=== PATIENT | male | born 1970 | race Caucasian/White ===

== ENCOUNTER 2023-07-29 11:22 | Observation (INO) ==
--- NOTE | 2023-07-19 09:16 | Anesthesiology Consultation ---
Date of Service July 19, 2023 Assessment & Plan (1) Encounter for pre-operative examination: - will request most recent cardiology office note from [facility] Dr. Sánchez. 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 Chart Review Chart Review: Pending: Refer to Additional Notes / Consult section and Patient NOT seen in Pre Admission Testing History Surgery Operation Date: 07/29/23 13:20 Proposed Procedures p Right Revision Partial versus Complete Total Hip Arthroplasty - Iraj Taylor DO Height/Weight Height: 6 ft 2 in Weight: 120.202 kg Allergies Allergy/AdvReac Type Severity Reaction Status Date / Time No Known Allergies Allergy Verified 07/15/23 13:45 Medications Home Medications Medication Instructions Recorded Confirmed Last Taken atorvastatin 10 mg tablet 10 mg PO QAM #90 tabs 12/09/22 07/15/23 05/22/23 olmesartan 20 mg tablet 20 mg PO QAM 12/10/22 07/15/23 05/22/23 methocarbamol 750 mg tablet 1,500 mg (2 x 750 mg) PO TID #180 04/04/23 07/15/23 05/22/23 tabs gabapentin 300 mg capsule 300 mg PO QID #60 caps 04/08/23 07/15/23 05/22/23 syringe with needle 3 mL 25 x 5/8" #50 ea 05/31/23 Unknown (BD Eclipse Luer-Ishmael) celecoxib 200 mg capsule 200 mg PO BID #60 caps 07/04/23 07/15/23 Unknown testosterone cypionate 200 mg/mL 100 mg (0.5 mL) IM Q7D #6 mL 07/04/23 07/15/23 Unknown intramuscular oil Past Medical History Medical History Family history of high cholesterol Rx statin, follows with PCP History of COVID-29 Mar 2020 History of panic attacks Hypertension Long-term current use of testosterone cypionate Muscle spasm of right leg Active Obstructive sleep apnea CPAP-nightly Osteoarthritis Paresthesia of right lower extremity Polycythemia, secondary followed by Hematology at [facility]-phlebotomy q 3 wks Past Family History Family History Father , At age 64 Myocardial infarction Family history of diabetes mellitus Brother , At age 39 Myocardial infarction Unknown Colon cancer Mother Family hx of colon cancer Grandmother (Maternal) Family hx of colon cancer Other No family history of adverse response to anesthesia Past Surgical History Surgical History History of colonoscopy 2020 History of hip surgery rt hip endoscopic ileotibial band release History of total right hip replacement anterior Hx of vasectomy [place] teeth removed Social History Smoking Status: Never smoker Do You Dip or Chew Tobacco: No Hx Alcohol Use: No Alcohol type: beer alcohol intake frequency: holidays/special occasions only Hx Substance Use: No substance use type: does not use Last Used Substance Other:: received medical marijuana rx for aftery surgery-has not used Lab Results Anesthesia Preop Results Results Anesthesia Widget: WBC 6.33 K/ul (4.8-10.8) 07/14/23 Hgb 14.6 g/dl (14.0-18.0) 07/14/23 Hct 45.8 % (42.0-52.0) 07/14/23 Plt 239 K/uL (130-400) 07/14/23 Na 139 mmol/L (136-145) 07/14/23 K 3.8 mmol/L (3.5-5.1) 07/14/23 Cl 105 mmol/L (98-107) 07/14/23 CO2 27 mmol/L (21-32) 07/14/23 BUN 26 mg/dl (6-23) H 07/14/23 Creat 1.13 mg/dl (0.6-1.4) 07/14/23 Glucose Level 120 mg/dl (70-99(Fasting)) H 07/14/23 PT 10.8 Seconds (9.0-12.0) 07/14/23 PTT 36 Seconds (21-31) H 07/14/23 INR 1.0 (0.9-1.1) 07/14/23 Blood Type O Positive 07/14/23 Antibody Screen NEGATIVE 07/14/23 Testing Electrocardiogram Date: 05/03/23 NSR, rate 78 bpm Chest X-Ray Date: 07/14/23 No active disease in the chest. Stress Test Date: 05/20/23 METS 10 MPHR 90% Negative exercise stress echo and ECG EF 50% Mildly dilated LV with mild global hypokinesis
[~2023-07-29 11:22] MED LIST: ROPIVACAINE 0.5% 5 MG/ML 30 ML VIAL ONE
[2023-07-29] MEDS ORDERED: PROPOFOL IV EMULSION 10 MG/ML 20 ML VIAL IV ONE (11:40)
[2023-07-29] MEDS ORDERED: MIDAZOLAM HCL 1 MG/ML 2ML VIAL ONE ×2 (11:40→13:26)
[2023-07-29] MEDS ORDERED: LIDOCAINE 2% 2 ML VIAL/AMP(20MG/ML) INFIL ONE (11:41)
[2023-07-29] MEDS ORDERED: fentaNYL citrate PF 100 MCG/2 ML VIAL ONE (11:41)
[2023-07-29] MEDS: dexAMETHasone**PF** 10 MG/ML VIAL IV SCH (12:00)
[2023-07-29] MEDS: ACETAMINOPHEN 500 MG TAB PO SCH ×2 (12:00→21:21)
[2023-07-29] MEDS: FAMOTIDINE 20 MG TAB PO SCH (12:00)
[2023-07-29] MEDS: GABAPENTIN 300 MG CAP PO SCH ×2 (12:00→19:58)
[2023-07-29] MEDS: LR 60ML/HR IV SCH (12:01)
--- NOTE | 2023-07-29 12:12 | History & Physical Bridge Note ---
Date of Service July 29, 2023 History & Physical Bridge Note I have examined the patient, reviewed the History & Physical and in the interval since the performance of the History & Physical I have noted the following changes of clinical significance: no changes noted
[2023-07-29] MEDS: LR 500ML BOLUS, THEN 15ML/HR IV SCH (12:25)
[2023-07-29] MEDS ORDERED: ePHEDrine sulfate 50 MG/ML AMP IV PRN (12:50)
[2023-07-29] MEDS ORDERED: fentaNYL citrate PF 100 MCG/2 ML VIAL IV PRN (12:50)
[2023-07-29] MEDS ORDERED: ONDANSETRON INJ 2 MG/ML 2 ML VIAL IV PRN ×2 (12:50→18:53)
[2023-07-29] MEDS ORDERED: ATROPINE SULFATE 0.1 MG/ML 10ML SYR IV PRN (12:50)
[2023-07-29] MEDS ORDERED: HYDROmorphone INJ 1 MG/ML SYRINGE IV PRN (12:50)
[2023-07-29] MEDS ORDERED: BUPIVACAINE 0.5 % 5 MG/1 ML PF 10ML VIAL ONE (12:56)
[2023-07-29] MEDS: TRANEXAMIC ACID 1,000 MG **IV Pre-op IV SCH (12:59)
[2023-07-29] MEDS: ceFAZolin 3000MG 3,000 MG/72.5 ML BAG IV SCH (13:23)
[2023-07-29] MEDS: ORTHO JOINT ANESTHETIC ONE (14:08)
[2023-07-29] MEDS ORDERED: HYDROmorphone INJ 2 MG/ML SYR/VIAL ONE (14:26)
[2023-07-29] MEDS ORDERED: ONDANSETRON INJ 2 MG/ML 2 ML VIAL ONE (15:03)
[2023-07-29] MEDS ORDERED: DEXAMETHASONE SOD INJ 4 MG/ML VIAL ONE (15:03)
[2023-07-29] MEDS ORDERED: PHENYLEPHRINE HCL 10 MG/ML VIAL ONE (15:18)
[2023-07-29] MEDS ORDERED: ePHEDrine sulfate 50 MG/5 ML SYR ONE (16:43)
[2023-07-29] MEDS ORDERED: GLYCOPYRROLATE 0.2 MG/ML VIAL ONE (16:52)
[2023-07-29 16:54] LABS: iSTAT Hemoglobin 14.6 g/dl (14.0-18.0); iSTAT Ionized Calcium 1.29 mmol/l (1.12-1.32); iSTAT Potassium 4.6 mmol/L (3.3-5.0)
[2023-07-29] MEDS: TRANEXAMIC ACID 1,000 MG **IV Intra-op IV SCH (17:00)
[2023-07-29] MEDS: ROPIV 0.5% 246mg, Ketorolac 30mg, EPINEPHrine 0.5mg in NSS INFIL SCH (17:15)
--- NOTE | 2023-07-29 17:21 | Operative Report ---
PG Post Operative Report Pre & Post Diagnosis Operation Date: 07/29/23 13:00 Pre-Op Diagnosis: Femoral loosening of prostethic right hip Post-Op Diagnosis: Femoral loosening of prostethic right hip I identified the patient and participated in the time-out.: Yes Procedure Operation Date: 07/29/23 13:00 Actual Procedures p Right revision total hip arthroplasty with revision of femoral component and femoral head. (Right) - Iraj Taylor DO Surgeon Iraj Taylor DO Coordinator Cardiopulmonary Services Iraj Zaldivar PA-C Estimated Blood Loss 400 Findings Consistent with Post-Op Diagnosis Specimens None Description of Procedure Implants used: I used a [employer] size 14 x 210 Lacy 1 piece with a 40 mm dual mobility bearing and a 28 mm head with a +6 neck. On July Saturnino arrived at [facility] for the above procedure. He was seen in the preoperative holding area and the operative extremity identified and signed. He is given a preoperative antibiotic and a spinal anesthetic. He was taken back to the operating room and laid on table supine position. He was initially put under basic sedation but he was having some trouble being comfortable on the table so he was put under general anesthesia. The right leg was brought out to a pure wrist leg positioner. The right hip was then prepped and draped in sterile fashion. A timeout was done. The patient and the operative extremity was properly identified. The previous anterior approach was opened up. Dissection was taken down through the fascia. The rectus was retracted anteriorly and the tensor muscle belly was retracted laterally. The capsule was identified. The capsule was then incised and tagged for later repair. The femoral head was then visualized. There was some synovial fluid within the joint but no signs of infection. Significant time was spent removing some scar tissue around the dual mobility shell and the hip was dislocated. Once the hip was dislocated the femoral head was then removed. The femur was then inspected. The femoral stem did have micromotion and was considered loose. The femoral stem was easily removed. At this point I decided to do an Lacy 1 piece stem. This would give me better femoral fixation. Due to the bony pedestal underneath the previously loose stem I used a drill bit from the [employer] hip fracture set followed by a cannulated reamer. I then used a ball-tipped guidewire to go down the canal followed by [employer] reamers. Once I was passed the pedestal and the canal was sufficiently opened up, I used the Lacy 1 piece reamers up to a size 14 reamer. A size 14 broach was then impacted into place. A 44 mm dual mobility shell was then snapped onto a 28 mm head with a +6 neck. This was placed onto the femoral stem. The hip was then reduced. Fluoroscopic images showed anatomic alignment of the hardware and the hip. The hip was then dislocated. All trial components were then removed. The final size 14 x 210 Lacy 1 piece stem was then impacted in the place. I was able to get an excellent press-fit. The 44 mm dual mobility shell was then snapped onto a 28 mm head with a +6 neck. The head was then placed onto the femoral neck. The hip was then reduced. Fluoroscopic images showed anatomic alignment of the hip. The wound was then irrigated. The capsule was closed with #1 Vicryl. The fascial layer was closed with #0 PDS suture. A deep skin layer was closed with 2-0 Vicryl. Superficial skin was closed with 3-0 Vicryl and david. He was then placed in a Silverlon dressing. He was then extubated and transferred to a hospital bed. He was taken to the postanesthesia care unit in stable condition. He tolerated the procedure well. Iraj Zaldivar PA-C, was present for the entire procedure. He was critical for patient positioning, prepping, draping, retraction exposure, wound closure and application of sterile dressing. I attest to the content of the Intraoperative Record and any orders documented therein. Any exceptions are noted below.
--- NOTE | 2023-07-29 17:41 | Fluoroscopy Report ---
FL hip RT 1V CLINICAL HISTORY: RIGHT TOTAL HIP ARTHROPLASTYright hip arthroplasty COMPARISON STUDY: 07/05/2023 FLUOROSCOPY TIME: 25.9 seconds FLUOROSCOPY IMAGES: 3 EXPOSURE DOSE: 3.0556 mGy FINDINGS: Satisfactory alignment of the right hip arthroplasty. No acute fracture or unexpected opaqu e foreign bodies identified. IMPRESSION: Fluoroscopic assistance as above. ACT 112: Negative or not required by law. Electronically signed by: Tree Collins M.D. 07/29/2023 5:39 PM
--- NOTE | 2023-07-29 18:15 | XRay Report ---
XR hip 1V RT w pelvis HISTORY: 52 years-old Male IN PACU - Post Surgical right hip arthroplasty COMPARISON: 07/05/2023 TECHNIQUE: AP view the pelvis with 2 views of the right hip FINDINGS: Satisfactory alignment of the right hip arthroplasty. Lateral skin david with expected postoperativ e soft tissue swelling and deep tissue air. No acute fracture or unexpected opaque foreign body. IMPRESSION: Satisfactory alignment of the right total joint arthroplasty. ACT 112: Negative or not required by law. The above report was generated using voice recognition software. It may contain grammatical, syntax o r spelling errors. Electronically signed by: Tree Collins M.D. 07/29/2023 6:13 PM
--- NOTE | 2023-07-29 18:28 | Anesthesiology Progress Note ---
Date of Service July 29, 2023 Anesthesia Post Procedure Vital Signs Vital Signs: Temp Pulse Pulse Resp BP Pulse Ox O2 Del Method 07/29/23 18:20 80 12 120/62 98 Oxymask 07/29/23 18:10 79 12 126/69 99 Oxymask 07/29/23 18:00 89 18 108/61 99 Oxymask 07/29/23 17:50 88 18 115/63 100 Oxymask 07/29/23 17:40 98.2 F 85 16 127/65 100 Oxymask 07/29/23 11:53 98.1 F 66 20 125/71 99 Room Air O2 Flow Rate 07/29/23 18:20 4 07/29/23 18:10 4 07/29/23 18:00 4 07/29/23 17:50 4 07/29/23 17:40 6 07/29/23 11:53 Pain Intensity Right Hip: Pain Intensity: 2 Transfer of Care Handoff Completed per policy Notes Mental Status: alert / awake / arousable and participated in evaluation Patient Amnestic to Procedure: Yes Nausea / Vomiting: adequately controlled Pain: adequately controlled Airway Patency, RR, SpO2: stable & adequate BP & HR: stable & adequate Hydration State: stable & adequate Neuraxial Anesthesia: was administered and sensory block is resolving Anesthetic Complications: no major complications apparent and Pt Satisfied with anesthetic care
[2023-07-29] MEDS ORDERED: oxyCODONE HCL IR 5 MG TAB (IMMEDIATE RELEASE) PO PRN (18:53)
[2023-07-29] MEDS ORDERED: NALOXONE HCL 0.4 MG/1 ML VIAL/CARP IV PRN (18:53)
[2023-07-29] MEDS ORDERED: HYDROmorphone INJ 0.5 MG/0.5 ML SYR IV PRN (18:53)
[2023-07-29] MEDS ORDERED: traMADol HCL 50 MG TABLET PO PRN (18:53)
[2023-07-29] MEDS ORDERED: METOCLOPRAMIDE HCL INJ 5 MG/ML 2 ML VIAL IV PRN (18:53)
[2023-07-29] MEDS ORDERED: MAGNESIUM HYDROXIDE SUSP 30 ML UDC PO PRN (18:53)
[2023-07-29] MEDS ORDERED: bisacodyL 10 MG SUPP PR PRN (18:53)
[2023-07-29] MEDS: SODIUM CHLORIDE 0.9% 1,000 ML IV SCH (19:37)
[2023-07-29] MEDS: KETOROLAC TROMETHAMINE 15 MG/ML VIAL IV SCH (19:58)
[2023-07-29] MEDS: ceFAZolin 1000MG 1,000 MG/7.5 ML SYR IV SCH (19:58)
[2023-07-29] MEDS: DOCUSATE SODIUM 100 MG CAP PO SCH (21:20)
[2023-07-29] MEDS: ASPIRIN 81 MG ECTAB PO SCH (21:20)
[2023-07-29] MEDS: METHOCARBAMOL 750 MG TABLET PO SCH (21:20)
[2023-07-29] MEDS: SENNA 8.6 MG TAB PO SCH (21:21)
[2023-07-30] MEDS: ATORVASTATIN 10 MG TAB PO SCH (08:05)
[2023-07-30] MEDS: MULTIVITAMIN TAB PO SCH (08:05)
[2023-07-30] MEDS: dexAMETHasone 4 MG TAB PO SCH (08:09)
--- NOTE | 2023-07-30 08:33 | Orthopedic Progress Note ---
Date of Service July 30, 2023 Assessment & Plan (1) Status post revision of total hip replacement: Overall is doing very well. He is not having much pain in the right leg at this time. He will be seen by physical therapy today for ambulation and range of motion exercises. He is on aspirin for DVT prophylaxis. He can be discharged home later today. He will follow-up orthopedics in 2 weeks. Manuel Matamoros was seen and examined at bedside this morning. Overall is doing very well. Is not having much pain in the hip. He has not been up and ambulating yet. He has no complaints.. Review of Systems All systems reviewed & are unremarkable except as noted in HPI & below. Physical Exam Physical examination the right hip, his leg is out full extension he has active dorsiflexion plantarflexion of his right ankle. He is right dressing has some leakage and it has been reinforced with an ABD.. Results & Data Results & Data Laboratory Results . Diagnostic Findings Postop x-rays of the right femur show the prosthesis to be in anatomic alignment without any evidence of fracture complication, or loosening.. PG Care Time/CCT Total # of Minutes Spent Total Time Spent with Patient: Total time spent is greater than 50% in coordination of care (as documented) at patient's floor/unit and/or counseling patient: Coding Level of Care Code 88674 Post Operative Follow-Up Diagnoses Status post revision of total hip replacement Z96.649
--- NOTE | 2023-07-30 08:34 | Discharge Summary ---
Date of Service July 30, 2023 Principal Diagnosis Same as "Discharge Diagnosis" noted below under Discharge Instructions. Discharge Exam Physical examination the right hip, his leg is out full extension he has active dorsiflexion plantarflexion of his right ankle. He is right dressing has some leakage and it has been reinforced with an ABD.. Discharge Data Procedures Performed Operation Date: 07/29/23 13:00 Actual Procedures p Right Partial Revision of Total Hip Arthroplasty(Right) - Iraj Taylor DO Ordered Studies 07/29/23 07:00 FL hip RT 1V Routine Hospital Course (1) Status post revision of total hip replacement: On July Saturnino arrived to [facility] and underwent a revision right hip replacement without complication. He had a spinal anesthetic that was converted to general. Postoperatively he was started on aspirin for DVT prophylaxis and transferred to the general orthopedic floors. His hospital course was uneventful. On postop day #1, his vital signs were stable and his pain was well-controlled. He was able to participate well with physical therapy doing ambulation and range of motion exercises. He was then discharged home. He will follow-up orthopedics in 2 weeks. PG Care Time/CCT Total # of Minutes Spent Total Time Spent with Patient: Total time spent is greater than 50% in coordination of care (as documented) at patient's floor/unit and/or counseling patient: Discharge Plan Discharge Items Patient Disposition: Home - Self-Care Reason For Visit: POST SURGICAL CARE Discharge Diagnosis: Right hip replacement Activity: As commented below Non-emergency contact: Surgeon Call non-emergency contact if: your wound has increased redness and your wound has increased drainage Follow-up/Referrals: PCP,NO [Primary Care Provider] - Diet: Regular Addtl Attending Provider Instructions: Activity and Therapy Recommendations: * If you are using [facility] then therapy will be provided at your home until they feel you have accomplished all of your goals. * If you are using [facility] then Physical Therapy will be provided until they feel you are ready to start Outpatient Physical Therapy. * If you are not using home therapy then Outpatient Physical Therapy should start about 3-5 days from your day of surgery. Therapy will last about 6-10 weeks * You were shown a series of exercises in the hospital. Do these exercises three times each day including the exercises you were shown in physical therapy. * Get up and walk several times each day.~ For the first four weeks, try not to stand or walk for more than one hour at a time. If you do stand or walk for more than one hour, you will not hurt anything, but your leg will likely swell.~~ * As you feel comfortable, you may change from the walker or crutches to a cane and~then to independent walking. Medications: * Narcotic You will likely be sent home from the hospital with a prescription for the narcotic pain medication that worked best throughout your stay. * Aspirin Most patients will be required to take Aspirin 81mg twice a day for 6 weeks after surgery. This is obtained [id number] and a prescription is not necessary. * Cefadroxil -take the antibiotic twice a day for 21 days to help prevent infection. * Other medications may be prescribed for specific circumstances. If you have any questions, please call the office at . * Resume previous home medications unless otherwise instructed TEDs/Elastic Stockings: The white elastic stockings help limit swelling and prevent blood clots from forming in your legs. The more you wear them, the more they work. Wear them for six weeks. Dressing Care: Leave the Silverlon dressing in place for 7 days. After 7 days you may remove the dressing. If the incision is not draining then you may leave the david open to air. If there is a little bit of drainage or if the david are getting stuck on your clothing then cover the incision with a dry dressing. The david will be removed at your 2 week follow-up appointment. Showering: You may shower with the Silverlon dressing in place. Do not let the shower spray hit the dressing directly. Pat the Silverlon dressing dry. If the dressing becomes wet underneath, then simply remove the dressing. Keep the incision dry until you are 7 days out from the day of surgery. After 7 days you may remove the Silverlon dressing and shower with the david exposed. Let soapy water run over the david and pat them dry. Do not scrub or soak the incision. Things To Watch For: * Drainage from the incision site that occurs more than one week after your surgery. * Increased redness at the incision site. * Fever above 102 degrees Fahrenheit. * Unusual chest pain or shortness of breath. * Call [facility] at with any of the above problems Follow-Up Visit: Follow-up with Dr. Taylor's PA (Iraj Zaldivar) 2-3 weeks after your day of surgery. He will remove your david and answer any questions. If you have any additional questions or concerns, Dr Taylor is usually in the office at the same time and will be available An appointment was probably scheduled when you signed-up for surgery in the office. If you have any questions call Office Instructions: More detailed instructions as well as Frequently Asked Questions were provided in a folder by our office when you signed-up for surgery. Please review these instructions when you get home. If you have any further questions or concerns, please feel free to call the office at [phone] Pending Studies at Discharge: No Stand-Alone Forms: My [facility] Medications and DC Order Prescriptions: New oxycodone 5 mg Tablet 5 mg PO Q4H PRN (Reason: pain) Qty: 30 0RF cefadroxil 500 mg capsule 500 mg PO BID 21 Days Qty: 42 0RF aspirin 81 mg Tablet,Delayed Release (Dr/Ec) 81 mg PO BID 42 Days Qty: 84 0RF Continued olmesartan 20 mg tablet 20 mg PO QAM atorvastatin 10 mg tablet 10 mg PO QAM Qty: 90 2RF methocarbamol 750 mg tablet 1,500 mg PO TID Qty: 180 2RF gabapentin 300 mg capsule 300 mg PO QID Qty: 60 2RF (DME) BD Eclipse Luer-Ishmael 3 mL 25 x 5/8" syringe See Rx Instructions .ROUTE .MEDSUPPLY Qty: 50 0RF Rx Instructions: use to inject testosterone celecoxib 200 mg capsule 200 mg PO BID Qty: 60 2RF testosterone cypionate 200 mg/mL oil 100 mg IM Q7D Qty: 6 1RF Rx Instructions: 12/08/22 PDMP Queried ok to fill -TR Discharge Orders: Discharge Order (Routine); Ordered 07/30/23 Ordered By: Iraj Taylor Admission Data Admit Date/Time: 07/29/23 14:13 Attending Provider: Iraj Taylor Admit Provider: Iraj Taylor Primary Care Provider: PCPMARIA TERESA
[2023-07-30] MEDS ORDERED: LOSARTAN POTASSIUM 50 MG TAB PO SCH (09:00)
[2023-07-30] MEDS ORDERED: OLMESARTAN MEDOXOMIL 20 MG TAB PO SCH (09:00)
== END 2023-07-30 12:50 | disposition home or self-care (01) ==
LOC: ASU 11:22 → 3E 11:22

== ENCOUNTER 2024-04-23 07:21 | Observation (INO) ==
--- NOTE | 2024-03-02 11:29 | PAT Medication Instructions ---
Medication Instructions Date of Service March 02, 2024 Home Medications Medication Instructions Recorded methocarbamol 750 mg tablet 1,500 mg (2 x 750 mg) PO TID #180 04/04/23 tabs gabapentin 300 mg capsule 300 mg PO QID #60 caps 04/08/23 syringe with needle 3 mL 25 x 5/8" #50 ea 10/10/23 (BD Eclipse Luer-Ishmael) testosterone cypionate 200 mg/mL 100 mg (0.5 mL) IM Q7D #6 mL 11/14/23 intramuscular oil atorvastatin 10 mg tablet 10 mg PO QAM #90 tabs 11/21/23 celecoxib 200 mg capsule 200 mg PO BID #60 caps 11/21/23 tramadol 50 mg tablet 50 mg PO Q8H PRN pain #30 tabs 01/30/24 olmesartan 20 mg tablet 20 mg PO QAM methocarbamol 750 mg tablet 1,500 mg (2 x 750 mg) PO TID gabapentin 300 mg capsule 300 mg PO QID testosterone cypionate 200 mg/mL intramuscular oil 100 mg (0.5 mL) IM Q7D atorvastatin 10 mg tablet 10 mg PO QAM celecoxib 200 mg capsule 200 mg PO BID tramadol 50 mg tablet 50 mg PO Q8H PRN ASK your surgeon for instructions celecoxib 200 mg capsule 200 mg PO BID ASK your prescriber and surgeon testosterone cypionate 200 mg/mL intramuscular oil 100 mg (0.5 mL) IM Q7D DO NOT take the morning of surgery olmesartan 20 mg tablet 20 mg PO QAM Take morning of surgery With a small sip of water, OTHERWISE NOTHING TO EAT OR DRINK AFTER MIDNIGHT: methocarbamol 750 mg tablet 1,500 mg (2 x 750 mg) PO TID gabapentin 300 mg capsule 300 mg PO QID atorvastatin 10 mg tablet 10 mg PO QAM tramadol 50 mg tablet 50 mg PO Q8H PRN(if needed) Take evening before surgery methocarbamol 750 mg tablet 1,500 mg (2 x 750 mg) PO TID gabapentin 300 mg capsule 300 mg PO QID tramadol 50 mg tablet 50 mg PO Q8H PRN(if needed) Other Notes If you have any questions please call us at [phone] or [phone] or [phone] or [phone]
--- NOTE | 2024-03-13 13:09 | Anesthesiology Consultation ---
Date of Service March 13, 2024 Assessment & Plan (1) Encounter for pre-operative examination: - will request most recent [facility] office note. - cardiology office visit 05/03/23: "...family history of ischemic heart disease and other diseases of the circulatory system-SOB, high BP, SOB, lightheaded and dizziness-CPAP every night...cardiac workup about a decade ago after his brother unfortunately at the age of 39 of a heart attack after having had stents at the age of 33. At that time he had stress testing which was negative...paternal uncle undergo CABG and his son (patient's cousin) suddenly while the uncle was still in the hospital...anxiety and will at times have shortness of breath and dizziness during panic attacks...polycythemia but was negative for JAK2...requires phlebotomy 6 or 7 times per year...not having any concerning anginal symptoms...exercises regularly...EKG performed in the office today which showed NSR...blood pressure is little elevated today...to start checking his BP at home. if he is able to come off the NSAIDs it would be reasonable for him to take an 81 mg baby aspirin every day given his family's history...return to the clinic in a year..." Chart Review Chart Review: Pending: Refer to Additional Notes / Consult section and Patient seen in Pre Admission Testing Teaching & Discussion Pre-Anesthesia Teaching/Discussion Notes: Instructed NPO after midnight before surgery, except medications with 15 cc of water. Medication instructions provided according to the PAT guidelines. History Surgery Operation Date: 04/06/24 12:00 Proposed Procedures p Left Anterior Total Hip Arthroplasty - Iraj Taylor DO Height/Weight Height: 6 ft 2 in Weight: 123.3 kg Allergies Allergy/AdvReac Type Severity Reaction Status Date / Time No Known Allergies Allergy Verified 03/02/24 08:30 Medications Home Medications Medication Instructions Recorded Confirmed Last Taken olmesartan 20 mg tablet 20 mg PO QAM 12/10/22 03/02/24 05/22/23 methocarbamol 750 mg tablet 1,500 mg (2 x 750 mg) PO TID #180 04/04/23 03/02/24 05/22/23 tabs gabapentin 300 mg capsule 300 mg PO QID #60 caps 04/08/23 03/02/24 05/22/23 testosterone cypionate 200 mg/mL 100 mg (0.5 mL) IM Q7D #6 mL 11/14/23 03/02/24 Unknown intramuscular oil atorvastatin 10 mg tablet 10 mg PO QAM #90 tabs 11/21/23 03/02/24 Unknown celecoxib 200 mg capsule 200 mg PO BID #60 caps 11/21/23 03/02/24 Unknown tramadol 50 mg tablet 50 mg PO Q8H PRN pain #30 tabs 01/30/24 03/02/24 Unknown syringe with needle 3 mL 25 x 5/8" #50 ea 03/12/24 Unknown (BD Eclipse Luer-Ishmael) tramadol 50 mg tablet 50 mg PO Q8H PRN pain #30 tabs 03/12/24 Unknown Past Medical History Medical History (Updated 03/13/24 @ 13:35 by Shelly Callejas PA-C) History of panic attacks Hyperlipidemia Hypertension controlled, stable per pt Osteoarthritis Polycythemia, secondary monitored by hematology, last therapeutic phlebotomy last year Sleep apnea CPAP-compliant Patient denies h/o stroke, seizures, heart attack, heart failure, DM, blood clots/DVTs or blood transfusions. Exercise / Class Metabolic Activity II 4-5 Yardwork/Stairs/Walk up hill (denies chest discomfort or shortness of breath with one flight of stairs) Past Family History Family History Father , At age 64 Myocardial infarction Family history of diabetes mellitus Diabetes Heart disease Brother , At age 39 Myocardial infarction Unknown Colon cancer Mother Family hx of colon cancer Colorectal cancer Grandmother (Maternal) Family hx of colon cancer Other No family history of adverse response to anesthesia Past Surgical History Surgical History History of colonoscopy 2020 History of hip surgery rt hip endoscopic ileotibial band release + revision (07/2023 at [place]) History of total right hip replacement anterior Hx of vasectomy [place] teeth removed Past Anesthesia History No Hx of Anesthesia Complications and No Family Hx of Anesthesia Complications History of PONV No Hx of PONV and No Hx of Motion Sickness Social History Smoking Status: Never smoker Do You Dip or Chew Tobacco: No Hx Alcohol Use: No Alcohol type: beer alcohol intake frequency: holidays/special occasions only Hx Substance Use: No substance use type: does not use Last Used Substance Other:: no longer using medical marijuana due to side effects Review of Systems Patient denies chest pain, shortness of breath, dyspnea on exertion, reflux, fever, chills, cough, wheezing, or palpitations. Physical Exam Vital Signs Vitals BP 128/74 P 85 TEMP 97.9 SP02 96% on RA RESP 18 Physical Patient resting comfortably in chair in no acute distress, alert and oriented, responding appropriately throughout visit Full cervical extension range of motion without pain TMD 3.5 finger breadths Mallampati Score 2 Dentition: upper front permanent bridge, denies chipped or loose teeth, caps/crowns, or implants Lungs: normal respiratory effort. Good air movement, clear throughout to auscultation, no adventitious breath sounds Cardiac: regular rate and rhythm, no murmurs noted Carotid arteries: negative bruit bilat Lab Results Anesthesia Preop Results Results Anesthesia Widget: WBC 6.36 K/ul (4.8-10.8) 03/13/24 Hgb 14.4 g/dl (14.0-18.0) 03/13/24 Hct 47.0 % (42.0-52.0) 03/13/24 Plt 204 K/uL (130-400) 03/13/24 Na 139 mmol/L (136-145) 03/13/24 K 3.8 mmol/L (3.5-5.1) 03/13/24 Cl 106 mmol/L (98-107) 03/13/24 CO2 26 mmol/L (21-32) 03/13/24 BUN 20 mg/dl (6-23) 03/13/24 Creat 1.13 mg/dl (0.6-1.4) 03/13/24 Glucose Level 121 mg/dl (70-99(Fasting)) H 03/13/24 PT 10.6 Seconds (9.0-12.0) 03/13/24 PTT 32 Seconds (21-31) H 03/13/24 INR 1.0 (0.9-1.1) 03/13/24 Blood Type O Positive 03/13/24 Antibody Screen NEGATIVE 03/13/24 Testing Electrocardiogram Date: 05/03/23 NSR, rate 78 bpm Chest X-Ray Date: 07/14/23 No active disease in the chest. Stress Test Date: 05/20/23 MPHR 90% Negative for ischemia EF 50% Mildly dilated LV with mild global hypokinesis Other Testing Abdomen pelvis CT 03/05/24 1.9 x 1.6 cm hypodense hepatic lesion, indeterminate, likely benign cyst. Small calcified granulomata in spleen. Degenerative changes of left hip joint with mild joint effusion and iliopsoas bursitis. Patulous left processus vaginalis. Mild prostatomegaly.
--- NOTE | 2024-04-19 07:51 | History & Physical Report ---
Date of Service April 19, 2024 Assessment & Plan (1) Osteoarthritis of left hip: We will proceed with a left anterior total of arthroplasty. Postoperatively he will be started on aspirin for DVT prophylaxis and kept overnight in the hospital for postop medical management. He plans to use energy physical therapy upon discharge. History of Present Illness Chief Complaint: Osteoarthritis left hip. Primary Care Provider: Thomas Brock MD Saturnino is a pleasant 53-year-old male who is well known to me. I did a right hip replacement on him in the past. Unfortunately, he is dealing with left hip pain. X-ray and clinical examination have been diagnostic for arthritis of the left hip. After failing conservative treatment, he has elected proceed with a left anterior total of arthroplasty. Allergies Allergy/AdvReac Type Severity Reaction Status Date / Time No Known Allergies Allergy Verified 03/02/24 08:30 Home Medications Medication Instructions Recorded Confirmed Type olmesartan 20 mg tablet 20 mg PO QAM 12/10/22 03/02/24 History methocarbamol 750 mg tablet 1,500 mg (2 x 750 mg) PO TID #180 04/04/23 03/02/24 Rx tabs gabapentin 300 mg capsule 300 mg PO QID #60 caps 04/08/23 03/02/24 Rx atorvastatin 10 mg tablet 10 mg PO QAM #90 tabs 11/21/23 03/02/24 Rx syringe with needle 3 mL 25 x 5/8" #50 ea 03/12/24 Rx (BD Eclipse Luer-Ishmael) tramadol 50 mg tablet 50 mg PO Q8H PRN pain #30 tabs 03/12/24 Rx testosterone cypionate 200 mg/mL 100 mg (0.5 mL) IM Q7D #6 mL 04/12/24 Rx intramuscular oil celecoxib 200 mg capsule 200 mg PO BID #60 caps 04/16/24 Rx tramadol 50 mg tablet 50 mg PO Q8H PRN pain #30 tabs 04/17/24 Rx Past Med/Surg History Problem List Inguinal mass Osteoarthritis of left hip Dyslipidemia Hypogonadotropic hypogonadism in male Hypertension Disc degeneration, lumbar Lumbar radiculopathy Severe obstructive sleep apnea Medical History Hypertension controlled, stable per pt Hyperlipidemia Sleep apnea CPAP-compliant Polycythemia, secondary monitored by hematology, last therapeutic phlebotomy last year Osteoarthritis History of panic attacks Surgical History History of total right hip replacement anterior History of hip surgery rt hip endoscopic ileotibial band release + revision (07/2023 at [place]) Hx of vasectomy History of colonoscopy 2020 [place] teeth removed Family History Father , At age 64 Myocardial infarction Family history of diabetes mellitus Diabetes Heart disease Brother , At age 39 Myocardial infarction Unknown Colon cancer Mother Family hx of colon cancer Colorectal cancer Grandmother (Maternal) Family hx of colon cancer Other No family history of adverse response to anesthesia Social History Smoking Status: Never smoker Second Hand Exposure: Yes (as a child); Do You Dip or Chew Tobacco: No; Hx Alcohol Use: No Hx Substance Use: No Preferred Language: Tamazight Communication Ability: Effective Visual Impairment: No Limitations Hearing Ability: Normal Health Type Technician Required: No Beliefs That Will Affect Care: None Current Living Situation: Family Current Living Situation Comment: DAUGHTER AND S/O current occupational status: employed Feels Safe at Home: Yes Safety Concerns: Feels Safe At This Time Assistive Devices: CPAP Review of Systems All systems reviewed & are unremarkable except as noted in HPI & below. Physical Exam On physical exam of the left hip, he is decreased range of motion. He has pain with forced internal and external rotation. All of his pain is located in the groin.. Constitutional WD/WN, vitals as above Eyes PERRL, conjunctivae normal, anicteric sclerae ENMT external ear and nose normal, oropharynx normal Neck trachea midline, no thyromegaly Respiratory normal respiratory effort Cardiovascular RRR, no murmur, no edema Gastrointestinal (Abdomen) normal bowel sounds, soft, nontender, no hepatosplenomegaly Psychiatric A+Ox3, euthymic affect Results & Data Results & Data Laboratory Results . Diagnostic Findings X-rays of the left hip show advanced osteoarthritis with joint space narrowing, osteophyte formation, and [id number] articulation. PG Care Time/CCT Total # of Minutes Spent Total Time Spent with Patient: Total time spent is greater than 50% in coordination of care (as documented) at patient's floor/unit and/or counseling patient: Coding Level of Care Code None Diagnoses Osteoarthritis of left hip M16.12
--- OUTSIDE RECORDS SUMMARY | 2024-04-23 07:27 | External Medical Summary | Continuity of Care Document ---
Author Name Unknown Organization [facility] [id number] [place] [id number] Care Team Providers Care Cross Tie Tram Loader Name Role Phone Thomas Brock Primary Care Physician [phone] Encounter [facility] [id number] Date(s): 03/28/24 - 03/28/24 [facility] [address] [address] [phone] Encounter Diagnosis Cough(Discharge Diagnosis) - 03/28/24 Chest congestion(Discharge Diagnosis) - 03/28/24 High blood pressure(Discharge Diagnosis) - 03/28/24 Discharge Disposition: Home or Self Care Attending Physician: MD Cuate, Taco Rojas Allergies, Adverse Reactions, Alerts No Known Allergies Assessment and Plan Extracted from: Title:Office Visit Note Author:MD Deena, Modesta Date:03/28/24 1.Cough Acute, uncomplicated illness/injury Goal:_ Data: D/D: Community acquired PNA/ Bronchitis/ Pneumonitis Plan: - His symptoms really suggests of CAP: Fever, chest pain, chest congestion, Yellowish-greenish Sputum for 7 days. - Looks comfortable on exam, no labored breathing, no use of accessory muscles. - Vitals: Stable(sats: 97 % at RA, RR: 18/Min). - Chest X-ray ordered. - Recommending Augmentin 875 mg PO BID for 7 days. [id number] mg once D1, f/b 250 mg Once for 4 days( total 5 days). - Albuterol inhaler prescribed PRN. - Expect to feel better by 5-7 days. - F/U PRN if symptom worsens. 2.Chest congestion Acute, uncomplicated illness/injury Goal:Resolution Data: Plan: As per 1 3.High blood pressure Chronic condition, stable Goal: BP < 140/90 Data: Plan: - HTN not diagnosed before. No Home BP monitoring. - Today's BP: 158/88. Last visit 158/98. - Patient endorse arthritis pain and plan of hip replacement in Apr 06 2024. - Believed his High BP could be because of that and also has more stress at work. - Recommended to monitor BP at home after everything settles. Immunizations Given and Recorded Vaccine Date Status Refusal Reason tetanus/diphtheria/pertuss, acel (Tdap) 04/11/18 R ecorded Medications Albuterol (Eqv-Proventil HFA) 90 mcg/inh inhalation aerosol Start: 03/28/24 11:53:00 AM EST, See Instructions, Disp# 6.7 g, 2 inh inhaled q6h, Note to Pharmacy: 2 puffs PRN, Q 6 hours, Pharmacy: [facility]/pharmacy #[id number] Start Date: 03/28/24 Status: Ordered atorvastatin 10 mg oral tablet Start: 11/21/23 10:45:00 AM EDT, 1 tab, PO, Daily, Disp# 90 tab, Refills: 1, Pharmacy: [facility] Start Date: 11/21/23 Status: Ordered Augmentin 875 mg-125 mg oral tablet Start: 03/28/24 11:45:00 AM EST, amoxicillin 1 tab, PO, q12h, Disp# 14, Pharmacy: [facility]/pharmacy #[id number] Start Date: 03/28/24 Stop Date: 04/04/24 Status: Ordered azithromycin 250 mg oral tablet Start: 03/28/24 11:48:00 AM EST, See Instructions, Disp# 1 blister, 1 tab PO Daily 5 day, Note to Pharmacy: 2 tab in Day 1 ( i.e. 500 mg) ; then 1 tab once daily for 4 days, Pharmacy: [facility]/pharmacy #[id number] Start Date: 03/28/24 Status: Ordered BD needle regular 22G x 1.5" Start: 03/28/20 8:16:00 PM EST, See Instructions, Disp# 25 each, Refills: 1, to inject testosteroneQ 2 weeks, Note to Pharmacy: Please dispense needles w/ syringes to get pt. through 1 year worth ofQ2 week testosterone injections., [id number] Start Date: 03/28/20 Status: Ordered BD needle regular 22G x 1.5" Start: 10/24/19 4:08:00 PM EDT, See Instructions, Disp# 25 each, Refills: 2, to inject testosterone Q 2 weeks, Note to Pharmacy: Please dispense needles w/ syringes to get pt. through 1 year worth of Q2 week testosterone injections., Pharmacy: [email or web address]/pharmacy #[id number] Start Date: 10/24/19 Status: Ordered diclofenac sodium 75 mg oral delayed release tablet Start: 11/21/23 10:45:00 AM EDT, 1 tab, PO, bid, Disp# 180 tab, Refills: 1, TAKE 1 TABLET BY MOUTH TWICE A DAY, Pharmacy: [facility] Start Date: 11/21/23 Stop Date: 05/19/24 Status: Ordered gabapentin 300 mg oral capsule Start: 11/21/23 10:45:00 AM EDT, 1 cap, PO, tid, Disp# 270 cap, Refills: 1, Pharmacy: [facility] Start Date: 11/21/23 Stop Date: 05/19/24 Status: Ordered methocarbamol 750 mg oral tablet Start: 11/22/23 5:44:00 PM EDT, 2 tab, PO, tid, Disp# 180 tab, Refills: 0, TAKE 2 TABLETS BY MOUTH 3TIMES A DAY, Pharmacy: [id number] Start Date: 11/22/23 Stop Date: 12/22/23 Status: Ordered sildenafil 100 mg oral tablet Start: 11/21/23 10:45:00 AM EDT, 1 tab, PO, Daily, Disp# 6 tab, Refills: 14, PRN: NEEDED, Pharmacy: [facility] Start Date: 11/21/23 Status: Ordered Testosterone Cypionate 200 mg/mL intramuscular solution Start: 04/24/20 3:04:00 PM EST, See Instructions, Disp# 2 mL, Refills: 1, INJECT 200 MG INTRAMUSCULARLY EVERY 2 WEEKS FOR 4 WEEKS., Pharmacy: [id number] Start Date: 04/24/20 Status: Ordered Mental Status 03/28/24 Barriers to Learning one year None evide nt Mandatory Health Literacy Documentation Yes Health Literacy Communication Barriers N ever Primary Language Mongolian Problem List Condition Confirmation Course Effective Dates Status H ealth Status Informant FH: colon cancer Confirmed Active Right hip pain Confirmed Active S/P total right hip arthroplasty Confirmed Active Hyperlipidemia Confirmed Active Hypopituitarism Confirmed Active IT band syndrome Confirmed Active Long-term current use of testosterone cypionate Confirmed Active Hypogonadism male Confirmed Active LISA on CPAP Confirmed Active Secondary erythrocytosis Confirmed Active Diagnosis Diagnosis Type Effective Dates Health Status Clinical Service Informant Cough Discharge Diagnosis 03/28/24 Non-Specified Chest congestion Discharge Diagnosis 03/28/24 Non-Specified High blood pressure Discharge Diagnosis 03/28/24 Non-Specified Procedures Procedure Date Related Diagnosis Body Site Status Arthroplasty of right hip joint 05/08/21 Completed X-ray tomography of pelvis a nd right hip 1 05/08/21 Completed Hip X-ray 2 05/23/20 Completed Colonoscopy 3 04/02/19 Completed Oral Completed 1Right hip total joint arthroplasty with expected postoperative changes. 2Left Hip: 1. No acute fracture 2. Mild left hip osteoarthritis Right Hip: 1. No acute fracture 2. Mild to moderate right hip osteoarthritis 3Impression the entire examined colon is normal No specimens collect Vital Signs Most recent to oldest [Reference Range]: 1 Patient Weight 120.7 kg (03/28/24 11:23 AM) Temperature [36.5-37.9 DegC] 36.7 DegC (03/28/24 11:23 AM) Heart Rate 88 bpm (03/28/24 11:23 AM) Respiratory Rate 18 br/min (03/28/24 11:23 AM) Blood Pressure 158/88mmHg (03/28/24 11:23 AM) Cuff Pulse Pressure 70 mmHg (03/28/24 11:23 AM) Social History Social History Type Response Smoking Status Never smoked cigaret nicole Sex Male Sex Representation Male (finding) [facility]CM Outpt Note * MD Cuate, Taco Rojas: MODIFY MD Cuello Mark B: MODIFY, MODIFY Event Display: [facility]CM Outpt Note Authored Date: Chief Complaint Chest congestion, chills, body aches, cough, sore throat, runny nose, SOB, all since last . History of Present Illness Patient is a 53 year old Malepresenting to the office for evaluation of cough and Chest congestion for 7 days. P/H/O hyperlipidemia, Hypopituitarism,Testosteronesupplementation. Under atorvastatin, sildenafil. Started with body pain, progressed to cough, SOB, fever with chills. Had chest infection before Fever as high as 102, a/w chills. Can eat okay, but not much desire. Mild throat pain as well. Productivecough: greenish yellow, amount same, not decreasing. Overall fatigues, SOB when he walks stairs at work,. No H/O allergy in pass. H/O arthritis, Plan for hip replacement in few weeks( 06 April). Review of Systems As per HPI Physical Exam Vitals & Measurements T:36.7C HR:88(Monitored) RR:18 BP:158/88 SpO2:97% WT:120.700kg(Dosing) WT:120.7kg PHQ2 Data(Data Documented on:03/28/2024 11:21) Emotional health assessment NEGATIVE General: Alert and oriented, No acute distress Cardiovascular: Normal rate, Regular rhythm, No murmur, No gallop. Respiratory: BL decreased air entry, Respirations are non-labored, occasional rales in right lower lung. Psych: Mood-affect congruence. Reports no SI/HI. Speech is of normal pace and content Assessment/Plan 1.Cough Acute, uncomplicated illness/injury Goal:_ Data: D/D: Community acquired PNA/ Bronchitis/ Pneumonitis Plan: - His symptoms really suggests of CAP: Fever, chest pain, chest congestion, Yellowish-greenish Sputum for 7 days. - Looks comfortable on exam, no labored breathing, no use of accessory muscles. - Vitals: Stable(sats: 97 % at RA, RR: 18/Min). - Chest X-ray ordered. - Recommending Augmentin 875 mg PO BID for 7 days. [id number] mg once D1, f/b 250 mg Once for 4 days( total 5 days). - Albuterol inhaler prescribed PRN. - Expect to feel better by 5-7 days. - F/U PRN if symptom worsens. 2.Chest congestion Acute, uncomplicated illness/injury Goal:Resolution Data: Plan: As per 1 3.High blood pressure Chronic condition, stable Goal: BP < 140/90 Data: Plan: - HTN not diagnosed before. No Home BP monitoring. - Today's BP: 158/88. Last visit 158/98. - Patient endorse arthritis pain and plan of hip replacement in Apr 06 2024. - Believed his High BP could be because of that and also has more stress at work. - Recommended to monitor BP at home after everything settles. Attestation I saw the patient with confirmed the villanueva portions of the history and physical exam and agree with the above impression and plan. HX and exam most c/w CAP--will tx empirically as same Problem List/Past Medical History Ongoing FH: colon cancer Hyperlipidemia Hypogonadism male Hypopituitarism IT band syndrome Long-term current use of testosterone cypionate LISA on CPAP Right hip pain S/P total right hip arthroplasty Secondary erythrocytosis Resolved Osteoarthritis of right hip Procedure/Surgical History Arthroplasty of right hip joint| Service Date: 05/08/2021X-ray tomography of pelvis and righthip| Service Date: 05/08/2021Hip X-ray| Service Date: 1Colonoscopy| Service Date: 04/02/2019Oral Medications albuterol(Albuterol (Eqv-Proventil HFA) 90 mcg/inh inhalation aerosol), See Instructions amoxicillin-clavulanate(Augmentin 875 mg-125 mg oral tablet), 1 tab, PO, q12h atorvastatin(atorvastatin 10 mg oral tablet), 10 mg= 1 tab, PO, Daily, 1 refills azithromycin(azithromycin 250 mg oral tablet), See Instructions diclofenac(diclofenac sodium 75 mg oral delayed release tablet), 75 mg= 1 tab, PO, bid, 1 refills gabapentin(gabapentin 300 mg oral capsule), 300 mg= 1 cap, PO, tid, 1 refills methocarbamol(methocarbamol 750 mg oral tablet), 1500 mg= 2 tab, PO, tid sildenafil(sildenafil 100 mg oral tablet), 1 tab, PO, Daily, PRN, 14 refills syringe needles(BD needle regular 22G x 1.5"), See Instructions, 1 refills syringe needles(BD needle regular 22G x 1.5"), See Instructions, 2 refills testosterone(Testosterone Cypionate 200 mg/mL intramuscular solution), See Instructions, 1 refills Allergies NKA Social History Smoking Status Never smoked cigarettes Alcohol Use:Current Type:Beer, Wine Frequency:1-2 times per year Exercise Exercise type:Weight lifting - Comments: Powerlifter Home/Environment Lives with:Spouse Living situation:Home/Independent Sexual Sexually active:Yes Current partners:1 Tobacco Use:Never smoker Family History Cancer of colon: Mother. Cardiovascular disease: Father and Brother. Chest pain: Father and Brother. Diabetes insipidus: Father. Heart attack: Father and Brother. Hypertension: Father. Hypothyroidism: Mother. Health Status Family Member(s) Immunizations Vaccine Date Status tetanus/diphtheria/pertuss, acel (Tdap) 04/11/2018 Recorded Recommendations Health Maintenance Pending(in the next year) OverDue Adult Influenza Vaccine due10/09/23and every 1year Due Adult COVID-19 Vaccination due03/28/24Unknown Frequency Adult Social Determinants of Health Screening due03/28/24Unknown Frequency Hepatitis C Screening due03/28/24One-time only Shingles Vaccine due03/28/24One-time only Satisfied(in the past 1 year) Satisfied Body Mass Index on01/20/24.Satisfied by JUSTINA Mesa Natasha Electronic Signature on File Electronically Reviewed/Signed by: Modesta Shaffer MD Author Signature Dt/Tm:03/28/2024 12:07 PM Resident Department of Family Medicine Electronically Reviewed/Signed by: Modesta Shaffer MD Cosigner Signature Dt/Tm: 03/28/2024 12:14 PM Resident Department of Family Medicine Electronically Reviewed/Signed by: Taco Cuello MD Cosigner Signature Dt/Tm: 03/29/2024 12:20 PM Department of Family Medicine [place] Patient Care team information Care Team Personnel Name: MD Jose, Sumit Valentine Position: Physician - Family Med Member Role: Lifetime Relationship Address: [address] [place] [address] [place] Name: MD Vinod, Thomas Connelly Position: Physician - Family Med Member Role: Primary Care Provider Address: [address] [place] [address] [place] Care Team Related Persons Name: BURT COMBS Name: PRAVEENA COMBS Name: FARIDEH COMBS
[2024-04-23] MEDS: LR 500ML BOLUS, THEN 15ML/HR IV SCH (08:25)
[2024-04-23] MEDS: LR 60ML/HR IV SCH (08:27)
[2024-04-23] MEDS: ACETAMINOPHEN 500 MG TAB PO SCH ×2 (08:33→15:05)
[2024-04-23] MEDS: FAMOTIDINE 20 MG TAB PO SCH (08:33)
[2024-04-23] MEDS: GABAPENTIN 900 MG DOSE PO SCH (08:33)
--- NOTE | 2024-04-23 08:35 | History & Physical Bridge Note ---
Date of Service April 23, 2024 History & Physical Bridge Note I have examined the patient, reviewed the History & Physical and in the interval since the performance of the History & Physical I have noted the following changes of clinical significance: no changes noted
[2024-04-23] MEDS: dexAMETHasone**PF** 10 MG/ML VIAL IV SCH (08:37)
[2024-04-23] MEDS ORDERED: PROPOFOL IV EMULSION 10 MG/ML 20 ML VIAL IV ONE ×5 (08:42→11:27)
[2024-04-23] MEDS ORDERED: LIDOCAINE 2% 2 ML VIAL/AMP(20MG/ML) INFIL ONE (08:42)
[2024-04-23] MEDS ORDERED: KETOROLAC 30 MG/ML VIAL IV PRN (09:00)
[2024-04-23] MEDS ORDERED: HYDROmorphone INJ 1 MG/ML SYRINGE IV PRN (09:00)
[2024-04-23] MEDS ORDERED: ONDANSETRON INJ 2 MG/ML 2 ML VIAL IV PRN ×2 (09:00→13:35)
[2024-04-23] MEDS ORDERED: ATROPINE SULFATE 0.1 MG/ML 10ML SYR IV PRN (09:00)
[2024-04-23] MEDS ORDERED: ePHEDrine sulfate 50 MG/ML AMP IV PRN (09:00)
[2024-04-23] MEDS ORDERED: fentaNYL citrate PF 100 MCG/2 ML VIAL ONE (09:08)
[2024-04-23] MEDS ORDERED: MIDAZOLAM HCL 1 MG/ML 2ML VIAL ONE (09:08)
[2024-04-23] MEDS ORDERED: KETAMINE HCL 10MG/ML SYR ONE (09:12)
[2024-04-23] MEDS: TRANEXAMIC ACID 1,000 MG **IV Pre-op IV SCH (09:20)
[2024-04-23] MEDS: ceFAZolin 3000MG 3,000 MG/72.5 ML BAG IV SCH (09:34)
[2024-04-23] MEDS ORDERED: PHENYLEPHRINE 100MCG/ML 5ML SYR ONE ×2 (10:20→10:21)
[2024-04-23] MEDS ORDERED: ePHEDrine sulfate 50 MG/5 ML SYR ONE (10:20)
[2024-04-23] MEDS ORDERED: DEXAMETHASONE SOD INJ 4 MG/ML VIAL ONE (10:34)
[2024-04-23] MEDS ORDERED: ONDANSETRON INJ 2 MG/ML 2 ML VIAL ONE (10:34)
[2024-04-23] MEDS: ORTHO JOINT ANESTHETIC ONE (11:15)
[2024-04-23] MEDS: TRANEXAMIC ACID 1,000 MG **IV Intra-op IV SCH (11:45)
[2024-04-23] MEDS: ROPIV 0.5% 246mg, Ketorolac 30mg, EPINEPHrine 0.5mg in NSS INFIL SCH (11:46)
--- NOTE | 2024-04-23 11:48 | Operative Report ---
PG Post Operative Report Pre & Post Diagnosis Operation Date: 04/23/24 09:00 Pre-Op Diagnosis: Left Hip Arthritis Post-Op Diagnosis: Left Hip Arthritis I identified the patient and participated in the time-out.: Yes Procedure Operation Date: 04/23/24 09:00 Actual Procedures p Left Anterior Total Hip Arthroplasty(Left) - Iraj Taylor DO Surgeon Iraj Taylor DO Finisher Card Tender Raymundo Lindsay PA-C Estimated Blood Loss 300 Findings Consistent with Post-Op Diagnosis Specimens Left femoral head Description of Procedure Implants used I used a [employer]immer[employer] total hip arthroplasty system with a size 14 Lacy stem, a 54 mm G7 cup with a 25mm screw, an E1 polyethylene liner, a dual mobility ceramic head with a 0 neck. Saturnino arrived at the hospital for the above procedure. He was seen in the preoperative holding area and the operative extremity was identified and signed. He was given a spinal anesthetic, a preoperative antibiotic, and TXA. He was then taken back to the operating room and laid on the table in the supine position. He was given basic sedation. The operative leg was secured to a Puristst leg positioner. The hip was then prepped and draped in sterile fashion. A timeout was done and the patient and the operative extremity was properly identified. An anterior approach was used. Dissection was taken down through the fascia and the tensor muscle belly was retracted laterally and the rectus was retracted medially. The circumflex vessels were identified and ligated. The capsule was then incised and tagged for later repair. The femoral neck was then cut and the femoral head was removed. The acetabulum was exposed. Time was spent doing a complete circumferential labral release. Sequential reaming of the acetabulum up to a size 53 reamer was done. Final reamings were done under fluoroscopy to ensure appropriate version. A Biomet 54 mm G7 cup was then impacted into place. A single 25 mm screw was placed. The E1 polyethylene liner was then snapped into place. Surrounding soft tissues were then injected with 100 cc of an orthopedic pain control cocktail. The proximal femur was then exposed. Sequential broaching up to a size 14 broach was done. Off that broach a size dual mobility head with a 0 neck was trialed. The hip was reduced and fluoroscopic images showed anatomic alignment of the implants in acceptable length. The broach was removed. The final size 14 Lacy stem was then impacted into place. A ceramic dual mobility mm head with a 0 neck was then impacted onto the stem and the hip was reduced. Final fluoroscopic images showed anatomic alignment of the hip. The capsule was then closed with #1 Vicryl suture. A dilute betadyne lavage was then done for 3 minutes. The joint was then irrigated with normal saline solution. The fascia was closed with #1 PDS suture. Skin was closed with 2-0 Vicryl, david, and a Silverlon dressing. He was then transferred to a hospital bed and taken to the post anesthesia care unit in stable condition. He tolerated the procedure well. Raymundo Lindsay PA-C, was present for the entire procedure. He was critical for patie nt positioning, prepping, draping, retraction exposure, wound closure and application of sterile dressing. I attest to the content of the Intraoperative Record and any orders documented therein. Any exceptions are noted below.
--- NOTE | 2024-04-23 12:05 | Fluoroscopy Report ---
FL hip LT 1V CLINICAL HISTORY: LEFT ANTERIOR HIPleft hip arthroplasty COMPARISON STUDY: 01/20/2024 FLUOROSCOPY TIME: 33.7 seconds FLUOROSCOPY IMAGES: 1 EXPOSURE DOSE: 5.4354 mGy FINDINGS: Satisfactory alignment of the left hip arthroplasty. Expected postoperative soft tissue swe lling and deep tissue air. No acute fracture or unexpected opaque foreign body. IMPRESSION: Fluoroscopic assistance as above. ACT 112: Negative or not required by law. Electronically signed by: Tree Collins M.D. 04/23/2024 12:03 PM
--- NOTE | 2024-04-23 12:53 | XRay Report ---
XR hip 1V LT w pelvis HISTORY: 53 years-old Male IN PACU - Post Surgical left hip arthroplasty COMPARISON: 01/20/2024 TECHNIQUE: AP view the pelvis with crosstable lateral view of the left hip FINDINGS: Satisfactory alignment of the hip arthroplasties. Lateral left hip skin david with expected postope rative soft tissue swelling and deep tissue air. IMPRESSION: Left hip arthroplasty with expected postoperative changes. ACT 112: Negative or not required by law. The above report was generated using voice recognition software. It may contain grammatical, syntax o r spelling errors. Electronically signed by: Tree Collins M.D. 04/23/2024 12:52 PM
--- NOTE | 2024-04-23 13:01 | Anesthesiology Progress Note ---
Date of Service April 23, 2024 Anesthesia Post Procedure Vital Signs Vital Signs: Temp Pulse Pulse Resp BP Pulse Ox O2 Del Method 04/23/24 12:55 77 16 101/57 L 98 Room Air 04/23/24 12:45 36.5 C 75 12 103/61 98 Room Air 04/23/24 12:35 75 16 98/55 L 96 Room Air 04/23/24 12:25 83 12 103/52 L 98 Oxymask 04/23/24 12:15 36 C L 78 16 108/52 L 96 Oxymask 04/23/24 08:01 36.7 C 74 20 139/89 97 Room Air O2 Flow Rate 04/23/24 12:55 04/23/24 12:45 04/23/24 12:35 04/23/24 12:25 4 04/23/24 12:15 8 04/23/24 08:01 Pain Intensity Right Hip: Pain Intensity: 6 Left Hip: Pain Intensity: 4 Transfer of Care Handoff Completed per policy Notes Mental Status: alert / awake / arousable Patient Amnestic to Procedure: Yes Nausea / Vomiting: adequately controlled Pain: adequately controlled Airway Patency, RR, SpO2: stable & adequate BP & HR: stable & adequate Hydration State: stable & adequate Neuraxial Anesthesia: was administered and sensory block is resolving Anesthetic Complications: no major complications apparent
[2024-04-23] MEDS ORDERED: HYDROmorphone INJ 0.5 MG/0.5 ML SYR IV PRN (13:35)
[2024-04-23] MEDS ORDERED: traMADol HCL 50 MG TABLET PO PRN (13:35)
[2024-04-23] MEDS ORDERED: oxyCODONE HCL IR 5 MG TAB (IMMEDIATE RELEASE) PO PRN (13:35)
[2024-04-23] MEDS ORDERED: bisacodyL 10 MG SUPP PR PRN (13:35)
[2024-04-23] MEDS ORDERED: MAGNESIUM HYDROXIDE SUSP 30 ML UDC PO PRN (13:35)
[2024-04-23] MEDS ORDERED: NALOXONE HCL 0.4 MG/1 ML VIAL/CARP IV PRN (13:35)
[2024-04-23] MEDS ORDERED: METOCLOPRAMIDE HCL INJ 5 MG/ML 2 ML VIAL IV PRN (13:35)
[2024-04-23] MEDS: METHOCARBAMOL 750 MG TABLET PO SCH (15:05)
[2024-04-23] MEDS: GABAPENTIN 300 MG CAP PO SCH (15:05)
[2024-04-23] MEDS: KETOROLAC TROMETHAMINE 15 MG/ML VIAL IV SCH (15:05)
[2024-04-23] MEDS: TESTOSTERONE CYPIONATE IM 200 MG/ML VIAL IM SCH (16:46)
[2024-04-23] MEDS ORDERED: ceFAZolin 1000MG 1,000 MG/7.5 ML SYR IV SCH (18:30)
[2024-04-23] MEDS: DOCUSATE SODIUM 100 MG CAP PO SCH (20:56)
[2024-04-23] MEDS: ASPIRIN 81 MG ECTAB PO SCH (20:56)
[2024-04-23] MEDS: SENNA 8.6 MG TAB PO SCH (20:56)
[2024-04-23] MEDS: ceFAZolin 2000MG 2,000 MG/15 ML SYR IV SCH (20:56)
[2024-04-23 23:39] VITALS: RESP 18
[2024-04-24 03:17] VITALS: TEMP 97.5
[2024-04-24 07:32] VITALS: O2SAT 98
[2024-04-24] MEDS: ATORVASTATIN 10 MG TAB PO SCH (08:09)
[2024-04-24] MEDS: dexAMETHasone 4 MG TAB PO SCH (08:09)
[2024-04-24] MEDS: MULTIVITAMIN TAB PO SCH (08:10)
--- NOTE | 2024-04-24 09:19 | Orthopedic Progress Note ---
Date of Service April 24, 2024 Assessment & Plan (1) Status post left hip replacement: Assessment: Status post left hip replacement Plan: Overall, he is doing quite well today with good pain control the left hip. He will work with physical therapy later this morning to work on ambulation and range of motion exercises. He can be discharged home later today pending formal physical therapy evaluation and recommendations. He is on aspirin for DVT prophylaxis. Prescription sent to pharmacy. His dressings can be changed today after completion of physical therapy. He is aware that these dressing should remain in place for next 48 hours. He may take down the dressings after 48 hours and if it is dry, he may allow the david to be open to air. He should continue restrictions to modify activities that bring on discomfort of the left hip. He was informed to continue the rest, ice, and elevation procedures when actable. He will follow-up with orthopedics in 2 weeks for postoperative management or sooner if needed. He verbalized understanding and agrees with this plan. Manuel . Saturnino was seen and evaluated this morning resting comfortably in no apparent distress. He notes that his pain is well-controlled to his left hip today. He has been up and out of bed with no significant issues. He has yet to work with physical therapy this morning. He denies any concerns with surgical incision site. He denies any active bleeding, discharge, or signs infection. He denies any other concerns today. Review of Systems All systems reviewed & are unremarkable except as noted in HPI & below. Physical Exam . On physical examination of the left hip, dressings are clean, dry, and intact. No signs of active bleeding, discharge, or signs of infection. Slight tenderness to palpation over the surgical incision site. Limited range of motion secondary to postoperative stiffness and soreness. Calf soft nontender to palpation. Negative Homans' sign. Intact plantarflexion and dorsiflexion to the left ankle. +2 DP and PT pulses. Less than 2-second capillary refill. Normal sensation. Neurovascular intact. Results & Data Results & Data Laboratory Results . Diagnostic Findings . Hip X-Ray 04/23/24 09:00 FL hip LT 1V CLINICAL HISTORY: LEFT ANTERIOR HIPleft hip arthroplasty COMPARISON STUDY: 01/20/2024 FLUOROSCOPY TIME: 33.7 seconds FLUOROSCOPY IMAGES: 1 EXPOSURE DOSE: 5.4354 mGy FINDINGS: Satisfactory alignment of the left hip arthroplasty. Expected postoperative soft tissue swelling and deep tissue air. No acute fracture or u nexpected opaque foreign body. IMPRESSION: Fluoroscopic assistance as above. ACT 112: Negative or not required by law. Electronically signed by: Tree Collins M.D. 04/23/2024 12:03 PM Hip/Pelvis X-Ray 04/23/24 12:19 XR hip 1V LT w pelvis HISTORY: 53 years-old Male IN PACU - Post Surgical left hip arthroplasty COMPARISON: 01/20/2024 TECHNIQUE: AP view the pelvis with crosstable lateral view of the left hip FINDINGS: Satisfactory alignment of the hip arthroplasties. Lateral left hip skin david with expected postoperative soft tissue swelling and deep tissue air. IMPRESSION: Left hip arthroplasty with expected postoperative changes. ACT 112: Negative or not required by law. The above report was generated using voice recognition software. It may contain grammatical, syntax or spelling errors. Electronically signed by: Tree Collins M.D. 04/23/2024 12:52 PM PG Care Time/CCT Total # of Minutes Spent Total Time Spent with Patient: Total time spent is greater than 50% in coordination of care (as documented) at patient's floor/unit and/or counseling patient: Coding Level of Care Code 11028 Post Operative Follow-Up Diagnoses Status post left hip replacement Z96.642
--- NOTE | 2024-04-24 09:20 | Discharge Summary ---
Date of Service April 24, 2024 Admission HPI (Per Admitting) Saturnino is a pleasant 53-year-old male who is well known to me. I did a right hip replacement on him in the past. Unfortunately, he is dealing with left hip pain. X-ray and clinical examination have been diagnostic for arthritis of the left hip. After failing conservative treatment, he has elected proceed with a left anterior total of arthroplasty. Admission Exam (Per Admitting) On physical exam of the left hip, he is decreased range of motion. He has pain with forced internal and external rotation. All of his pain is located in the groin.. Principal Diagnosis Same as "Discharge Diagnosis" noted below under Discharge Instructions. Discharge Exam . On physical examination of the left hip, dressings are clean, dry, and intact. No signs of active bleeding, discharge, or signs of infection. Slight tenderness to palpation over the surgical incision site. Limited range of motion secondary to postoperative stiffness and soreness. Calf soft nontender to palpation. Negative Homans' sign. Intact plantarflexion and dorsiflexion to the left ankle. +2 DP and PT pulses. Less than 2-second capillary refill. Normal sensation. Neurovascular intact. Discharge Data Procedures Performed Operation Date: 04/23/24 09:00 Actual Procedures p Left Anterior Total Hip Arthroplasty(Left) - Iraj Taylor, Ordered Studies 04/23/24 09:00 FL hip LT 1V Routine Hospital Course (1) Status post left hip replacement: On April 23, 2024 Saturnino arrived at [facility] and underwent a left anterior total hip arthroplasty performed by Dr. Taylor with no complications. He had a spinal anesthetic. Postoperatively, he was started on aspirin for DVT prophylaxis and transferred to the general orthopedic floor in stable condition. His hospital course was uneventful. On postoperative day #1, his vital signs were stable and his pain was well-controlled. He participated well physical therapy working on ambulation and range of motion exercises. He was then discharged home in stable condition. He will follow-up with orthopedics in 2 weeks for postoperative management. PG Care Time/CCT Total # of Minutes Spent Total Time Spent with Patient: Total time spent is greater than 50% in coordination of care (as documented) at patient's floor/unit and/or counseling patient: Discharge Plan Discharge Items Patient Disposition: Home - Home Health Services Reason For Visit: Left Hip Arthritis Discharge Diagnosis: Status Post Left Anterior JOSEFA Activity: Per Instructions section Non-emergency contact: Surgeon Call non-emergency contact if: your temperature is above 101.5, your wound has increased redness, your wound has increased drainage and your wound pain has increased Follow-up/Referrals: Thomas Brock MD [Primary Care Provider] - Diet: Regular Addtl Attending Provider Instructions: Activity and Therapy Recommendations: * If you are using [facility] then therapy will be provided at your home until they feel you have accomplished all of your goals. * If you are using [facility] then Physical Therapy will be provided until they feel you are ready to start Outpatient Physical Therapy. * If you are not using home therapy then Outpatient Physical Therapy should start about 3-5 days from your day of surgery. Therapy will last about 6-10 weeks * You were shown a series of exercises in the hospital. Do these exercises three times each day including the exercises you were shown in physical therapy. * Get up and walk several times each day.~ For the first four weeks, try not to stand or walk for more than one hour at a time. If you do stand or walk for more than one hour, you will not hurt anything, but your leg will likely swell.~~ * As you feel comfortable, you may change from the walker or crutches to a cane and~then to independent walking. Medications: * Narcotic You will likely be sent home from the hospital with a prescription f or the narcotic pain medication that worked best throughout your stay. * Cefadroxil -take the antibiotic twice a day for 10 days to help prevent infection. * Aspirin Most patients will be required to take Aspirin 81mg twice a day for 6 weeks after surgery. This is obtained [id number] and a prescription is not necessary. * Other medications may be prescribed for specific circumstances. If you have any questions, please call the office at . * Resume previous home medications unless otherwise instructed TEDs/Elastic Stockings: The white elastic stockings help limit swelling and prevent blood clots from forming in your legs. The more you wear them, the more they work. Wear them for six weeks. Dressing Care: Leave the Silverlon dressing in place for 7 days. After 7 days you may remove the dressing. If the incision is not draining then you may leave the david open to air. If there is a little bit of drainage or if the david are getting stuck on your clothing then cover the incision with a dry dressing. The david will be removed at your 2 week follow-up appointment. Showering: Dressings will be changed prior to discharge. Keep new dressings in place for 48 hours. After, you may remove dressing on your own or under guidance from Home Health. If dry, you may leave the david open to air. If surgical site is dry, you may shower with the david exposed. Let soapy water run over the david and pat them dry. Do not scrub or soak the incision. Diet: You may resume your previous diet. Things To Watch For: * Drainage from the incision site that occurs more than one week after your surgery. * Increased redness at the incision site. * Fever above 102 degrees Fahrenheit. * Unusual chest pain or shortness of breath. * Call [facility] at with any of the above problems Follow-Up Visit: Follow-up with Dr. Taylor's office 2-3 weeks after your day of surgery. We will remove your david and answer any questions. If you have any additional questions or concerns, Dr Taylor is usually in the office at the same time and will be available An appointment was probably scheduled when you signed-up for surgery in the office. If you have any questions call Office Instructions: More detailed instructions as well as Frequently Asked Questions were provided in a folder by our office when you signed-up for surgery. Please review these instructions when you get home. If you have any further questions or concerns, please feel free to call the office at [phone] Pending Studies at Discharge: No Stand-Alone Forms: My [facility], Smoking Cessation Medications and DC Order Prescriptions: New oxycodone 5 mg Tablet 5 mg PO Q6H PRN (Reason: pain) Qty: 30 0RF aspirin 81 mg Tablet,Delayed Release (Dr/Ec) 81 mg PO BID 42 Days Qty: 84 0RF cefadroxil 500 mg capsule 500 mg PO BID 10 Days Qty: 20 0RF Continued olmesartan 20 mg tablet 20 mg PO QAM methocarbamol 750 mg tablet 1,500 mg PO TID Qty: 180 2RF Patient Comments: takes as needed for pain gabapentin 300 mg capsule 300 mg PO QID Qty: 60 2RF (DME) BD Eclipse Luer-Ishmael 3 mL 25 x 5/8" syringe See Rx Instructions .ROUTE .MEDSUPPLY Qty: 50 0RF Rx Instructions: use to inject testosterone testosterone cypionate 200 mg/mL oil 100 mg IM Q7D Qty: 6 1RF atorvastatin [Lipitor] 10 mg tablet 10 mg PO QAM Held celecoxib 200 mg capsule 200 mg PO BID Qty: 60 1RF Hold Instructions: Resume on 06/05/24. Discontinued tramadol 50 mg tablet 50 mg PO Q8H PRN (Reason: pain) Qty: 30 0RF tramadol 50 mg tablet 50 mg PO Q8H PRN (Reason: pain) Qty: 30 0RF Admission Data Admit Date/Time: 04/23/24 12:19 Attending Provider: Iraj Taylor Admit Provider: Iraj Taylor Primary Care Provider: Thomas Brock
[2024-04-24 10:50] VITALS: BP 101/57; PULSE 78
== END 2024-04-24 10:50 | disposition home health service (06) ==
LOC: 3E 07:21 → ASU 07:21

== ENCOUNTER 2024-09-29 17:34 | Inpatient (IN) ==
[2024-09-29] MEDS ORDERED: ZOLPIDEM TARTRATE 5 MG TAB PO PRN (20:21)
[2024-09-29] MEDS ORDERED: ALUMINUM/MAGNESIUM SUSP 30 ML UDC PO PRN (20:21)
[2024-09-29] MEDS ORDERED: ONDANSETRON INJ 2 MG/ML 2 ML VIAL IV PRN (20:21)
[2024-09-29] MEDS ORDERED: diphenhydrAMINE Capsule 25 MG CAP PO PRN (20:21)
[2024-09-29] MEDS: DOCUSATE SODIUM 100 MG CAP PO SCH (21:37)
[2024-09-29] MEDS: oxyCODONE/ACETAMINOPHEN 5mg/325mg TAB PO PRN (21:37)
--- NOTE | 2024-09-29 22:05 | XRay Report ---
Exam(s): XR HIP + PELVIS, 1 view EXAM: XR Left Hip With Pelvis When Performed, 2 or 3 Views CLINICAL HISTORY: Reason for exam: Dislocated hip. TECHNIQUE: Two or three views of the left hip with pelvis when performed. COMPARISON: Hip and pelvis radiographs on 06/12/2024 FINDINGS: Bones/joints: Anterior dislocation of the left hip arthroplasty. Right hip arthroplasty without evidence of complication. No displaced fracture identified. Soft tissues: Unremarkable. IMPRESSION: Anterior dislocation of the left hip arthroplasty. Electronically signed by: Chidi Olmos M.D. 09/29/24 22:04 PM
[2024-09-29] MEDS: SODIUM CHLORIDE 0.65% NA SOLN 45 ML (OCEAN) STA (22:26)
[2024-09-29] MEDS: MoRPHine SULFATE 4 MG/ML 1 ML CARP\\VIAL IV PRN (22:29)
[2024-09-30] MEDS: PANTOprazole 40 MG TAB PO SCH (07:25)
--- NOTE | 2024-09-30 08:48 | History & Physical Report ---
Date of Service September 30, 2024 Assessment & Plan (1) Dislocation of hip joint prosthesis: 54-year-old gentleman 5 months out from an uncomplicated total hip replacement with an anterior hip dislocation. They were unable to reduce this with sedation in a closed fashion in [place]. Considering this he is elected to come here for further management as Dr. Taylor did his surgery. He appears neurologically intact. I discussed treatment option with him today. At this point this is going to require a closure duction under complete a anesthetic agent. If beds unsuccessful this may need to be done through an open fashion. Considering the fact that I do not do this anterior approach at work and do admit him to the hospital and get him prep to do this tomorrow under Dr. Taylor's guidance. The patient was fully aware of this on transfer that this was not happen till Tuesday. He looks reasonably comfortable. I will hold keep him on bedrest today. Begin DVT prophylaxis including teds, SCDs, aspirin. N.p.o. after midnight. (2) Status post left hip replacement: (3) History of total right hip replacement: (4) Dyslipidemia: (5) Hypogonadotropic hypogonadism in male: (6) Hypertension: (7) Severe obstructive sleep apnea: (8) Lumbar radiculopathy: History of Present Illness Chief Complaint: . Acute left hip pain/dislocation after total hip arthroplasty Primary Care Provider: Thomas Brock MD . The patient is a 54-year-old fairly active gentleman whose had a long history of orthopedic hip problems. He had his right hip replaced in the past and subsequent revision. He had 1 underwent a left uncomplicated total hip replacement back in April of this year. He was doing well and was out to hitting softballs yesterday. He says he has done this thousands of times and on 1 twist he had acute onset of pain and could not ambulate. He was taken to the [facility]. He was seen by the orthopedist there. They essentially put him to sleep and were unable to relocate his hip. The treatment options were explained and he elected to come here for further management as Dr. Taylor did his surgery. No other complaints. He is got somewhat left anterior hip pain. Moderate pain. Not severe. Allergies Allergy/AdvReac Type Severity Reaction Status Date / Time No Known Allergies Allergy Verified 09/25/24 11:04 Home Medications Medication Instructions Recorded Confirmed Type olmesartan 20 mg tablet 20 mg PO QAM 12/10/22 09/25/24 History methocarbamol 750 mg tablet 1,500 mg (2 x 750 mg) PO TID #180 04/04/23 09/25/24 Rx tabs gabapentin 300 mg capsule 300 mg PO QID #60 caps 04/08/23 09/25/24 Rx syringe with needle 3 mL 25 x 5/8" #50 ea 03/12/24 09/25/24 Rx (BD Eclipse Luer-Ishmael) atorvastatin 10 mg tablet (Lipitor) 10 mg PO QAM 04/23/24 09/25/24 History celecoxib 200 mg capsule 200 mg PO DAILY PRN pain #30 caps 07/20/24 09/25/24 Rx testosterone cypionate 200 mg/mL 100 mg (0.5 mL) IM Q7D #6 mL 08/13/24 09/25/24 Rx intramuscular oil Past Med/Surg History Problem List (Updated 09/30/24 @ 08:46 by Jerardo Cruz MD) Dislocation of hip joint prosthesis Status post left hip replacement (~04/2024) Inguinal mass Dyslipidemia Hypogonadotropic hypogonadism in male Hypertension Disc degeneration, lumbar Lumbar radiculopathy Severe obstructive sleep apnea Medical History Osteoarthritis of left hip Hypertension controlled, stable per pt Hyperlipidemia Sleep apnea CPAP-compliant Polycythemia, secondary monitored by hematology, last therapeutic phlebotomy last year Osteoarthritis History of panic attacks Surgical History History of total right hip replacement anterior History of hip surgery rt hip endoscopic ileotibial band release + revision (07/2023 at [place]) Hx of vasectomy History of colonoscopy 2020 [place] teeth removed Family History Father , At age 64 Myocardial infarction Family history of diabetes mellitus Diabetes Heart disease Brother , At age 39 Myocardial infarction Unknown Colon cancer Mother Family hx of colon cancer Colorectal cancer Grandmother (Maternal) Family hx of colon cancer Other No family history of adverse response to anesthesia Social History Smoking Status: Never smoker Second Hand Exposure: Yes (as a child); Do You Dip or Chew Tobacco: No; Hx Alcohol Use: No Hx Substance Use: No Preferred Language: [place] Communication Ability: Effective Visual Impairment: No Limitations Hearing Ability: Normal 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 Physical Exam . Physical examination was a pleasant middle-age male. Healthy in appearance. He is lying in bed looks pretty comfortable. Examination of left hip and leg reveals his leg to be externally rotated. It is not particularly short. His incision sites healed nicely. There is no major swelling. He has marked pain with any type of hip motion. No knee effusion. He is neurologically intact. Neck trachea midline, no thyromegaly Respiratory normal respiratory effort, lungs clear to auscultation Cardiovascular RRR, no murmur, no edema Gastrointestinal (Abdomen) normal bowel sounds, soft, nontender, no hepatosplenomegaly Results & Data Results & Data Laboratory Results . Diagnostic Findings . X-rays of the left hip were reviewed. Shows left uncemented hip replacement which is dislocated anteriorly. No signs of fracture. He is got a right hip for placement which looks to be in acceptable position. PG Care Time/CCT Total # of Minutes Spent Total Time Spent with Patient: Total time spent is greater than 50% in coordination of care (as documented) at patient's floor/unit and/or counseling patient: Coding Level of Care Code 70847 INT INP/OBS CARE 3/75MIN Diagnoses Dislocation of hip joint prosthesis T84.029A; Z96.649 Status post left hip replacement Z96.642 History of total right hip replacement Z96.641 Dyslipidemia E78.5 Hypogonadotropic hypogonadism in male E23.0 Hypertension I10 Severe obstructive sleep apnea G47.33 Lumbar radiculopathy M54.16
--- NOTE | 2024-10-01 07:52 | Orthopedic Progress Note ---
Date of Service October 01, 2024 Assessment & Plan (1) Dislocation of hip joint prosthesis: * Continue Current Treatment * Plan for OR today, close versus open reduction of left prosthetic hip dislocation * Disposition: TBD * Daily treatment: Physical Therapy/ Occupational Therapy per protocol * Weight bearing status: NWB left leg preop * Continue to monitor for ABLA * Pain control * NPO for OR today Subjective . Active Problems: Left prosthetic hip dislocation 54 y/o male with active left prosthetic hip dislocation. Failed reduction under sedation at outside hospital, transferred here for further care. Doing well overall, pain managed. Denies fever/chills, chest pain/SOB, nausea/vomiting. Otherwise no complaints. NPO for procedure today Review of Systems All systems reviewed & are unremarkable except as noted in HPI & below. Physical Exam . * General: Alert and oriented, no acute distress * Constitutional: well-developed, well-nourished. * Respiratory: Normal respiratory effort, no distress * Gastrointestinal: No tenderness to palpation, no rigidity or guarding. * Skin: No rash or lesion. * Neurologic: Grossly normal * Musculoskeletal: Left lower extremity shortened and internally rotated. Well- healed surgical incision. Otherwise no obvious deformity or overlying skin changes to the left lower extremity. TTP proximal thigh and anterior hip region. Otherwise no specific tenderness of the left leg. ROM hip not assessed. AROM ankle plantar/dorsiflexion intact. Sensation intact plantar/dorsal foot. Brisk capillary fill. Results & Data Results & Data Laboratory Results . Diagnostic Findings . PG Care Time/CCT Total # of Minutes Spent Total Time Spent with Patient: Total time spent is greater than 50% in coordination of care (as documented) at patient's floor/unit and/or counseling patient: [place] [address] SUB INP/OBS CARE 05/05MIN Patient Type Established Diagnoses Dislocation of hip joint prosthesis T84.029A; Z96.649
[2024-10-01] MEDS ORDERED: ONDANSETRON INJ 2 MG/ML 2 ML VIAL ONE (10:51)
[2024-10-01] MEDS ORDERED: PROPOFOL IV EMULSION 10 MG/ML 20 ML VIAL IV ONE ×2 (10:51→14:34)
[2024-10-01] MEDS ORDERED: LIDOCAINE 2% 2 ML VIAL/AMP(20MG/ML) INFIL ONE (10:51)
[2024-10-01] MEDS ORDERED: ROCURONIUM BROMIDE 10 MG/ML 5 ML VIAL IV ONE ×2 (10:51→13:32)
[2024-10-01] MEDS ORDERED: fentaNYL citrate PF 100 MCG/2 ML VIAL ONE ×2 (10:52→12:52)
[2024-10-01] MEDS ORDERED: MIDAZOLAM HCL 1 MG/ML 2ML VIAL ONE (10:52)
--- NOTE | 2024-10-01 10:52 | History & Physical Bridge Note ---
Date of Service October 01, 2024 History & Physical Bridge Note I have examined the patient, reviewed the History & Physical and in the interval since the performance of the History & Physical I have noted the following changes of clinical significance: no changes noted
[2024-10-01] MEDS ORDERED: ePHEDrine sulfate 50 MG/ML AMP IV PRN (11:07)
[2024-10-01] MEDS ORDERED: fentaNYL citrate PF 100 MCG/2 ML VIAL IV PRN (11:07)
[2024-10-01] MEDS ORDERED: ATROPINE SULFATE 0.1 MG/ML 10ML SYR IV PRN (11:07)
--- NOTE | 2024-10-01 11:07 | Anesthesiology Consultation ---
Date of Service October 01, 2024 Assessment & Plan (1) Encounter for pre-operative examination: Chart Review Chart Review: Acceptable Risk for Surgery and Patient NOT seen in Pre Admission Testing Consults Requested none History Surgery Operation Date: 10/01/24 07:05 Proposed Procedures p Closed Reduction Dislocated Hip Left - Iraj A Brandon, DO s versus Open Reduction Dislocated Hip Left - Iraj A Brandon, DO Height/Weight Height: 6 ft 2 in Weight: 128.367 kg Allergies Allergy/AdvReac Type Severity Reaction Status Date / Time No Known Allergies Allergy Verified 09/25/24 11:04 Medications Home Medications Medication Instructions Recorded Confirmed Last Taken olmesartan 20 mg tablet 20 mg PO QAM 12/10/22 09/25/24 04/22/24 07:00 methocarbamol 750 mg tablet 1,500 mg (2 x 750 mg) PO TID #180 04/04/23 09/25/24 04/15/24 07:00 tabs gabapentin 300 mg capsule 300 mg PO QID #60 caps 04/08/23 09/25/24 04/15/24 07:00 syringe with needle 3 mL 25 x 5/8" #50 ea 03/12/24 09/25/24 Unknown (BD Eclipse Luer-Ishmael) atorvastatin 10 mg tablet (Lipitor) 10 mg PO QAM 04/23/24 09/25/24 04/22/24 07:00 celecoxib 200 mg capsule 200 mg PO DAILY PRN pain #30 caps 07/20/24 09/25/24 Unknown testosterone cypionate 200 mg/mL 100 mg (0.5 mL) IM Q7D #6 mL 08/13/24 09/25/24 Unknown intramuscular oil Active Medications Generic Name Dose Route Start Last Admin Trade Name Freq PRN Reason Stop Dose Admin Docusate Sodium 100 mg 09/29/24 21:00 10/01/24 08:54 Docusate Sodium 100 Mg Cap PO 10/29/24 20:59 Not Given BID STEFANIE Morphine Sulfate 4 mg 09/29/24 20:21 09/30/24 16:33 Morphine Sulfate 4 Mg/Ml 1 Ml Carp\\Vial IV 10/13/24 20:20 4 mg Q4H PRN Administration Pain Oxycodone/Acetaminophen 1 - 2 tab 09/29/24 20:21 10/01/24 08:52 Oxycodone/Acetaminophen 5mg/325mg Tab PO 10/13/24 20:20 2 tab Q6H PRN Administration Pain Pantoprazole Sodium 40 mg 09/30/24 09:00 10/01/24 08:52 Pantoprazole 40 Mg Tab PO 10/30/24 08:59 40 mg QAM STEFANIE Administration Past Medical History Medical History Osteoarthritis of left hip Hypertension controlled, stable per pt Hyperlipidemia Sleep apnea CPAP-compliant Polycythemia, secondary monitored by hematology, last therapeutic phlebotomy last year Osteoarthritis History of panic attacks Past Family History Family History Father , At age 64 Myocardial infarction Family history of diabetes mellitus Diabetes Heart disease Brother , At age 39 Myocardial infarction Unknown Colon cancer Mother Family hx of colon cancer Colorectal cancer Grandmother (Maternal) Family hx of colon cancer Other No family history of adverse response to anesthesia Past Surgical History Surgical History History of total right hip replacement anterior History of hip surgery rt hip endoscopic ileotibial band release + revision (07/2023 at [place]) Hx of vasectomy History of colonoscopy 2020 [place] teeth removed Social History Smoking Status: Never smoker Do You Dip or Chew Tobacco: No Hx Alcohol Use: No Alcohol type: beer alcohol intake frequency: holidays/special occasions only Hx Substance Use: No substance use type: does not use Physical Exam Vital Signs Last Vital Signs Temp 97.9 F 10/01/24 07:19 Pulse 74 10/01/24 07:19 Resp 16 10/01/24 07:19 BP 142/85 H 10/01/24 07:19 Pulse Ox 97 10/01/24 07:19 O2 Del Method Room Air 10/01/24 07:19
[2024-10-01] MEDS: LACTATED RINGER'S 1,000 ML IV SCH (11:27)
[2024-10-01] MEDS: ceFAZolin 2,000 MG/15 ML IV PUSH IV ONE (11:27)
[2024-10-01] MEDS ORDERED: KETAMINE HCL 10MG/ML SYR ONE (11:29)
[2024-10-01] MEDS: ceFAZolin 2000MG 2,000 MG/15 ML SYR IV ONE (12:35)
[2024-10-01] MEDS: ceFAZolin 1000MG 1,000 MG/7.5 ML SYR IV ONE (12:35)
[2024-10-01] MEDS: TRANEXAMIC ACID / 0.7% NACL 1000MG/100ML BAG IV ONE (12:38)
[2024-10-01] MEDS ORDERED: ceFAZolin 330 MG/ML 1 GM VIAL ONE (12:38)
[2024-10-01] MEDS ORDERED: PHENYLEPHRINE 100MCG/ML 5ML SYR ONE ×2 (12:39→13:56)
[2024-10-01] MEDS ORDERED: DEXAMETHASONE SOD INJ 4 MG/ML VIAL ONE (12:58)
[2024-10-01] MEDS ORDERED: HYDROmorphone INJ 2 MG/ML SYR/VIAL ONE (14:17)
[2024-10-01] MEDS: TRANEXAMIC ACID / 0.7% NACL 1,000 MG/100 ML BAG IV STA (14:21)
[2024-10-01] MEDS ORDERED: SUGAMMADEX SODIUM 200 MG/2 ML VIAL IV ONE (14:26)
[2024-10-01] MEDS ORDERED: NALOXONE HCL 0.4 MG/1 ML VIAL/CARP IV PRN (14:32)
[2024-10-01] MEDS ORDERED: METOCLOPRAMIDE HCL INJ 5 MG/ML 2 ML VIAL IV PRN (14:32)
[2024-10-01] MEDS ORDERED: bisacodyL 10 MG SUPP PR PRN (14:32)
[2024-10-01] MEDS ORDERED: MAGNESIUM HYDROXIDE SUSP 30 ML UDC PO PRN (14:32)
[2024-10-01] MEDS ORDERED: oxyCODONE HCL IR 5 MG TAB (IMMEDIATE RELEASE) PO PRN (14:33)
[2024-10-01] MEDS ORDERED: diphenhydrAMINE Capsule 25 MG CAP PO PRN (14:33)
[2024-10-01] MEDS ORDERED: HYDROmorphone INJ 0.5 MG/0.5 ML SYR IV PRN (14:33)
[2024-10-01] MEDS ORDERED: HYDROmorphone INJ 1 MG/ML SYRINGE IV PRN (14:33)
[2024-10-01] MEDS: BUPIVACAINE/EPINEPHRINE 0.5% MPF 1:200,000 30 ML VIAL ONE (14:41)
--- NOTE | 2024-10-01 14:42 | Operative Report ---
PG Post Operative Report Pre & Post Diagnosis Operation Date: 10/01/24 07:05 Pre-Op Diagnosis: Left Prosthetic Hip Dislocation Post-Op Diagnosis: Left Prosthetic Hip Dislocation I identified the patient and participated in the time-out.: Yes Procedure Operation Date: 10/01/24 07:05 Actual Procedures p Attempted Closed Reduction of Dislocated Left Hip(Left) - Iraj Taylor DO s Open Reduction of Left Hip with Femoral Head Exchange(Left) - Iraj Taylor DO Surgeon Iraj Taylor DO It Corporate Recruiter Aj Womack PA-C Estimated Blood Loss 300 Findings Consistent with Post-Op Diagnosis Specimens None Description of Procedure On October 01, 2024 Saturnino was brought down from the hospital room to the preoperative holding area. The operative extremity identified and signed. He was given a preoperative antibiotic. He seen back the operating room and laid on table supine position. Was put under general anesthesia. A timeout was done. The patient and the operative extremity was prepped identified. Attempts were made to close reduction of the hip. However, attempts at closed reduction were unsuccessful. Minimal seemed as if the plastic and the ceramic head were disassociated from the dual mobility cup. At this point it was decided to do an open reduction possible femoral head and neck exchange. The left leg was brought out to a purist leg positioner. The left hip was then prepped and draped sterile fashion. A timeout was done. The patient and the operative extremity was properly identified. The previous anterior incision was opened back up. Dissection was taken down through the fascia. Care was taken to follow the previous anterior interval. Dissection was taken down to the femoral neck. The femoral neck was exposed and the 28 mm femoral head was exposed. The femoral head had disassociated from the plastic liner. Time was spent removing any scar tissue around the areas. The capsule was excised. The femoral head was then removed. The plastic liner was then removed from the acetabulum. The acetabulum was then exposed and care was taken to remove any scar tissue around the acetabulum. The femoral neck was then exposed. Several different trial head and neck assembly's were used. A +6 neck with a 28 mm head and a 40 mm dual mobility bearing seem to be the best fit and give the most stability. The final size 28 mm +6 head was then impacted into a 40 mm dual mobility bearing. The head and neck assembly was then placed onto the femoral neck. The hip was then reduced. Final fluoroscopic images showed good alignment of the implants and a fully reduced hip. Hemostasis was obtained. Surrounding soft tissues were injected with Marcaine with epinephrine. The fascial layer was closed with #1 PDS suture. Deep skin was closed with 2-0 Vicryl and superficial skin was closed with 3-0 Vicryl and david. He was then placed in a soft dressing. He was then extubated and transferred to a hospital bed. He was taken to the postanesthesia care unit in stable condition. He tolerated the procedure well. Aj Womack PA-C, was present for the entire procedure. He was critical for patient positioning, prepping, draping, retraction exposure, wound closure and application of sterile dressing. I attest to the content of the Intraoperative Record and any orders documented therein. Any exceptions are noted below.
--- NOTE | 2024-10-01 15:09 | Fluoroscopy Report ---
FL hip LT 2-3V CLINICAL HISTORY: CLOSED REDUCTION VS OPEN REDUCTION LT HIP COMPARISON STUDY: 09/29/2024 FLUOROSCOPY TIME: 10 seconds FLUOROSCOPY IMAGES: 1 EXPOSURE DOSE: 2.3 mGy FINDINGS: Fluoroscopy was provided for reduction of left hip prosthesis. IMPRESSION: Fluoroscopy for reduction. ACT 112: Negative or not required by law. Electronically signed by: Andrey Davis M.D. 10/01/2024 3:08 PM
--- NOTE | 2024-10-01 15:24 | XRay Report ---
XR hip 1V LT w pelvis CLINICAL HISTORY: IN PACU - Post Surgical COMPARISON: 09/29/2024 FINDINGS: There is interval reduction of the left hip prosthesis. There is expected soft tissue gas. Skin david are present laterally. Right hip prosthesis is unremarkable. No fracture or dislocation . IMPRESSION: Unremarkable postoperative exam. ACT 112: Negative or not required by law. Electronically signed by: Andrey Davis M.D. 10/01/2024 3:23 PM
--- NOTE | 2024-10-01 15:48 | Anesthesiology Progress Note ---
Date of Service October 01, 2024 Anesthesia Post Procedure Vital Signs Vital Signs: Temp Pulse Pulse Resp BP Pulse Ox O2 Del Method 10/01/24 15:40 36.6 C 82 12 140/77 96 Room Air 10/01/24 15:30 85 12 135/78 94 Room Air 10/01/24 15:20 78 12 142/80 H 96 Room Air 10/01/24 15:10 91 H 15 109/67 94 Oxymask 10/01/24 15:00 78 12 105/64 94 Oxymask 10/01/24 14:59 36.0 C L 79 12 94/61 L 94 Oxymask 10/01/24 11:12 36.9 C 78 20 155/101 H 96 Room Air 10/01/24 07:19 36.6 C 74 16 142/85 H 97 Room Air 09/30/24 19:42 37 C 78 127/78 96 Room Air O2 Flow Rate 10/01/24 15:40 10/01/24 15:30 10/01/24 15:20 10/01/24 15:10 4 10/01/24 15:00 10/01/24 14:59 10/01/24 11:12 10/01/24 07:19 09/30/24 19:42 Pain Intensity Left Hip: Pain Intensity: 7 Transfer of Care Handoff Completed per policy Notes Mental Status: alert / awake / arousable Patient Amnestic to Procedure: Yes Nausea / Vomiting: adequately controlled Pain: adequately controlled Airway Patency, RR, SpO2: stable & adequate BP & HR: stable & adequate Hydration State: stable & adequate Anesthetic Complications: no major complications apparent
[2024-10-01] MEDS: KETOROLAC TROMETHAMINE 15 MG/ML VIAL IV SCH (16:11)
[2024-10-01] MEDS: ONDANSETRON INJ 2 MG/ML 2 ML VIAL IV PRN (16:11)
[2024-10-01] MEDS: SODIUM CHLORIDE 0.9% 1,000 ML IV SCH (16:18)
[2024-10-01] MEDS: ASPIRIN 81 MG ECTAB PO SCH (20:32)
[2024-10-01] MEDS: ceFAZolin 2000MG 2,000 MG/15 ML SYR IV SCH (20:35)
[2024-10-01] MEDS: DOCUSATE SODIUM 100 MG CAP PO SCH (20:41)
[2024-10-01] MEDS: SENNA 8.6 MG TAB PO SCH (20:51)
[2024-10-01] MEDS: ACETAMINOPHEN 500 MG TAB PO SCH (22:42)
[2024-10-02 07:02] VITALS: BP 139/81; PULSE 76; RESP 16; TEMP 98.2; O2SAT 96
[2024-10-02] MEDS: ATORVASTATIN 10 MG TAB PO SCH (08:14)
[2024-10-02] MEDS: LOSARTAN POTASSIUM 50 MG TAB PO SCH (08:15)
[2024-10-02] MEDS: MULTIVITAMIN TAB PO SCH (08:15)
[2024-10-02] MEDS: dexAMETHasone 4 MG TAB PO SCH (08:15)
--- NOTE | 2024-10-02 09:40 | Orthopedic Progress Note ---
Date of Service October 02, 2024 Assessment & Plan (1) Status post left hip replacement: * Continue Current Treatment * Disposition: home * Daily treatment: Physical Therapy/ Occupational Therapy per protocol * Weight bearing status: WBAT * Continue to monitor for ABLA * Pain control * DVT prophylaxis, ASA/Eliquis * Office/hospital f/u 2 weeks for progress check and staple/suture removal * Plan for discharge today pending PT/OT clearance Subjective .Active Problems: S/p left revision JOSEFA 54 y/o male s/p left revision JOSEFA. Doing well overall, pain managed and improved function. Denies fever/chills, chest pain/SOB, nausea/vomiting. Otherwise no complaints. Review of Systems All systems reviewed & are unremarkable except as noted in HPI & below. Physical Exam .Left hip surgical dressing CDI, not removed for exam. Otherwise no obvious deformity or overlying skin changes. Diffuse TTP proximal thigh and hip region. Otherwise no specific tenderness of distal thigh, lower leg, foot/ankle. AROM hip flexion intact. AROM foot/ankle intact. Sensation intact plantar/dorsal foot. Brisk capillary refill. Results & Data Results & Data Laboratory Results . Diagnostic Findings . PG Care Time/CCT Total # of Minutes Spent Total Time Spent with Patient: Total time spent is greater than 50% in coordination of care (as documented) at patient's floor/unit and/or counseling patient: Coding Level of Care Code 02621 Post Operative Follow-Up Diagnoses Status post left hip replacement Z96.642
== END 2024-10-02 10:50 | disposition home or self-care (01) | DRG 467 ==
LOC: 3E 19:51
DX: G47.33 Obstructive sleep apnea (adult) (pediatric); Z99.89 Dependence on other enabling machines and devices; Z79.890 Hormone replacement therapy; Y93.64 Activity, baseball; T84.021A Dislocation of internal left hip prosthesis, initial encounter; Z96.641 Presence of right artificial hip joint; Z77.22 Contact with and (suspected) exposure to environmental tobacco smoke (acute) (chronic); M54.16 Radiculopathy, lumbar region; Z79.899 Other long term (current) drug therapy; D75.1 Secondary polycythemia; E23.0 Hypopituitarism; X50.1XXA Overexertion from prolonged static or awkward postures, initial encounter; I10 Essential (primary) hypertension; E78.5 Hyperlipidemia, unspecified